=== PATIENT | male | born 1990 | race Caucasian/White ===

== ENCOUNTER 2020-05-17 13:31 | Outpatient (REF) | payer BC, SELFPAY | END 2020-05-17 13:32 | disposition home or self-care (01) | LOC: HO.LAB 13:31 | PROVIDERS: Visit Provider Internal Medicine | DX: Z20.822 Contact with and (suspected) exposure to COVID-19 (principal) | CPT/HCPCS: 36415; C9803; U0003; U0005 ==

== ENCOUNTER 2021-04-06 17:42 | Outpatient (REF) | payer BC, SELFPAY ==
[2021-04-06 19:32] LABS: Influenza A PCR NEGATIVE (Negative); Influenza B PCR NEGATIVE (Negative); Resp Syncy Virus RNA Qual PCR NEGATIVE (Negative); SARS COV2 PCR INHOUSE POSITIVE (Negative)
== END 2021-04-06 17:43 | disposition home or self-care (01) ==
LOC: HO.LAB 17:42
PROVIDERS: PCP Internal Medicine; Visit Provider Physician Assistant
DX: Z20.822 Contact with and (suspected) exposure to COVID-19 (principal)
CPT/HCPCS: 0241U

== ENCOUNTER 2021-09-13 09:23 | Inpatient (IN) | payer BC, SELFPAY ==
--- NOTE | ~2021-09-13 | CT_ITS ---
EXAMINATION: CT ABDOMEN AND PELVIS WITH CONTRAST CLINICAL INFORMATION: Lower GI bleed. COMPARISON: None TECHNIQUE: Multidetector volumetric images were obtained from the superior aspect of the liver through the pubic symphysis following administration 85 mL of Omnipaque 350 intravenous contrast. Sagittal and coronal reformatted images were obtained on the technologist's workstation. Oral contrast: Yes This CT examination was performed using dose optimization techniques as appropriate, variously including the following: *Automated exposure control *Adjustment of mA and/or kV according to patient size (this includes techniques or standardized protocols for targeted exams where dose is matched to indication/reason for exam; i.e. extremities or head) *Use of iterative reconstruction technique DLP: 507 mGy-cm FINDINGS: LUNG BASES: The visualized lung bases are unremarkable. LIVER, GALLBLADDER, AND BILIARY TREE: The liver is normal in size, shape, and attenuation. No focal hepatic lesion or biliary ductal dilatation is present. The gallbladder is unremarkable with no evidence of radiopaque gallstones, gallbladder wall thickening, or obvious pericholecystic inflammatory changes. PANCREAS: Unremarkable. SPLEEN: Unremarkable. ADRENAL GLANDS: Unremarkable. KIDNEYS AND URETERS: The kidneys are normal in size, shape, and attenuation. No hydronephrosis, hydroureter, or calculi seen. No perinephric stranding. BLADDER: Unremarkable. GASTROINTESTINAL TRACT: The stomach is unremarkable. Oral contrast utilized for the study. Normal caliber small bowel. No obstruction. No colonic wall thickening or acute inflammation. Mild colonic stool burden. Contrast extends throughout the small bowel and into the colon. ABDOMINAL WALL: No significant hernia is appreciated. LYMPH NODES: Normal. VASCULAR: Normal caliber aorta. Retroaortic left renal vein. PELVIC VISCERA: The prostate and seminal vesicles are unremarkable. OSSEOUS STRUCTURES: No acute or suspicious osseous abnormality. CT/CT abdomen pelvis w con IMPRESSION: No acute findings in the abdomen or pelvis. No inflammatory changes or bowel wall thickening. Fleischner guidelines were followed.
[2021-09-13 09:27] VITALS: BP 126/78; PULSE 66; RESP 16; TEMP 36.1; O2SAT 98; BMI 27.1
[2021-09-13 09:36] LABS: MANUAL DIFF FLAG NO
[2021-09-13 09:38] LABS: Basophils Absolute Auto 0.1 X10*3/uL (0.0-0.2); Basophils Percent Auto 0.9 % (0-2); Eosinophils Absolute Auto 0.1 X10*3/uL (0.0-0.4); Eosinophils Percent Auto 1.3 % (0-4); Hemoglobin 12.7 g/dl (14.0-18.0); Imm Gran Abs Auto 0.02 X10*3/uL (0.00-0.03); Imm Gran Pct Auto 0.4 % (0.0-0.4); Lymphocytes Absolute Auto 1.3 X10*3/uL (1.2-4.9); Lymphocytes Percent Auto 24.5 % (20-40); Mean Corpuscular HGB Conc 34.3 g/dl (31.0-36.0); Mean Corpuscular Hemoglobin 29.6 pg (27.0-33.0); Mean Corpuscular Volume 86.2 fL (80.0-98.0); Mean Platelet Volume 9.1 fL (9.4-12.4); Monocytes Absolute Auto 0.5 X10*3/uL (0.1-1.2); Monocytes Percent Auto 8.4 % (2-11); Neutrophils Absolute Auto 3.4 x10*3/uL (2.0-8.3); Neutrophils Percent Auto 64.5 % (45-73); Platelet Count 322 X10*3/uL (160-400); Red Blood Count 4.29 X10*6/uL (4.60-5.80); Red Cell Distribution Width 12.2 % (11.0-16.0); White Blood Count 5.3 X10*3/uL (4.8-10.8)
[2021-09-13 10:00] LABS: Alanine Aminotransferase 17 U/L (0-40); Albumin Level 4.4 g/dL (3.5-5.0); Alkaline Phosphatase 58 U/L (39-117); Anion Gap 11 (12-20); Aspartate Amino Transferase 18 U/L (5-37); Bilirubin Total 0.8 mg/dL (0.0-1.0); Blood Urea Nitrogen 10 mg/dL (9-16); Calcium 9.3 mg/dL (8.4-10.2); Carbon Dioxide 25 mmol/L (22-29); Chloride 106 mmol/L (96-108); Creatinine Clr Calc Pharmacy 142.8; Estimated Glomerular Filt Rate > 60; Glucose Random 100 mg/dL (60-115); Potassium 4.1 mmol/L (3.3-5.1); Sodium 138 mmol/L (135-145)
--- NOTE | 2021-09-13 10:33 | ED.GIBLEED ---
HPI - GI Bleed General Chief complaint: GI Bleed Stated complaint: GI Bleed Time Seen by Provider: 09/13/21 10:32 Source: patient Mode of arrival: ambulatory History of Present Illness HPI Narrative: 31-year-old male without significant past medical history comes in with onset of GI bleed since yesterday reports that it has been melena and large volumes with approximately 3 episodes. He has not suffered any incontinence, it is not associated with pain, but there have been large clots and patient notes that he does have hemorrhoids but ?this does not feel like?. He otherwise denies any dizziness, headache, shortness of breath, chest pain/palpitations and denies any abdominal discomfort at this time. Patient does report a cousin who is in his 30s and just recently recovered from colon cancer. He does report that his grandfather has also had a history of colon cancer. Patient denies any history NSAID use. Related Data Home Medications Medication Instructions Recorded Confirmed dextroamphetamine-amphetamine ER 1 cap PO DAILY 09/13/21 09/13/21 30 mg 24hr capsule,extend release (Adderall XR) Allergies Allergy/AdvReac Type Severity Reaction Status Date / Time No Known Allergies Allergy Verified 09/13/21 09:30 Review of Systems Review of Systems: Pertinent positives and negatives as stated in HPI 10 point review of systems is otherwise negative. [facility] Past Medical History Source: nursing notes reviewed Social History Social History Advance Directives: No Advance Directives Information Provided: Yes Physical Exam Vital Signs: Vital Signs: Last Vital Signs Temp 97.0 F 09/13/21 09:27 Pulse 66 09/13/21 09:27 Resp 16 09/13/21 09:27 BP 126/78 09/13/21 09:27 Pulse Ox 98 09/13/21 09:27 BMI result Body Mass Index 27.1 VITAL SIGNS: Reviewed. GENERAL: Well developed, well nourished, in no acute distress. HEAD: Normocephalic/atraumatic EYES: PERRLA, EOMI EARS: Ext canals without abnormality OROPHARYNX: no oral lesions noted, posterior pharynx clear LUNGS: Normal breath sounds. No adventitious sounds or accessory muscle use. SpO2<98> CARDIOVASCULAR: Regular rate and rhythm without noted murmurs ABDOMEN: Soft, non-tender, non-distended with bowel sounds. 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 EXTREMITIES: No cyanosis, clubbing or edema. SKIN: Inspection of the skin reveals no rashes NEUROLOGIC: Alert and oriented x 4. Strength and sensation to light touch were grossly intact x 4. Course Course Course Narrative: 31-year-old male with history and clinical presentation consistent with lower GI bleed do not suspect that this is internal hemorrhoids and on review of all investigations BUN remains within normal limits, however on comparison with prior lab results from 2019 there is a noted 3 g drop. Patient is not clinically symptomatic at this time, but given last episode was 3 hours ago and patient is still complaining symptoms feeling like his abdomen is rumbling suspect that he may have another episode. He was given Protonix, although less likely felt to be an upper GI bleed. Reevaluation(s) Reevaluation #1: I discussed the case with Dr. Gonzalez who recommends admission, CT abdomen pelvis with p.o. contrast. Time: 11:06 Reevaluation #2: I spoke with Radiology who is agreeable to proceed with IV contrast and is recommending it. Therefore, the order was amended and patient will undergo both p.o. and IV contrast abdomen pelvis. MDM - GI Bleed Lab Data Result diagrams: 09/13/21 09:33 09/13/21 09:33 Labs: Lab Results 09/13/21 09/13/21 09/13/21 Range/Units 09:33 09:33 11:37 WBC 5.3 (4.8-10.8) X10*3/uL RBC 4.29 L (4.60-5.80) X10*6/uL Hgb 12.7 L (14.0-18.0) g/dl Hct 37.0 L (42.0-52.0) % MCV 86.2 (80.0-98.0) fL MCH 29.6 (27.0-33.0) pg MCHC 34.3 (31.0-36.0) g/dl RDW 12.2 (11.0-16.0) % Plt Count 322 (160-400) X10*3/uL MPV 9.1 L (9.4-12.4) fL Immature Gran % (Auto) 0.4 (0.0-0.4) % Neut % (Auto) 64.5 (45-73) % Lymph % (Auto) 24.5 (20-40) % [place] % (Auto) 8.4 (2-11) % Eos % (Auto) 1.3 (0-4) % Baso % (Auto) 0.9 (0-2) % Lymph # (Auto) 1.3 (1.2-4.9) X10*3/uL [place] # (Auto) 0.5 (0.1-1.2) X10*3/uL Eos # (Auto) 0.1 (0.0-0.4) X10*3/uL Baso # (Auto) 0.1 (0.0-0.2) X10*3/uL Abs Immat Gran (auto) 0.02 (0.00-0.03) X10*3/uL Absolute Neuts (auto) 3.4 (2.0-8.3) x10*3/uL Absolute Nucleated RBC 0.000 (0.0-0.012) X10*3/uL Nucleated RBC % (auto) 0.0 (0.0-0.2) /100WBC Sodium 138 (135-145) mmol/L Potassium 4.1 (3.3-5.1) mmol/L Chloride 106 (96-108) mmol/L Carbon Dioxide 25 (22-29) mmol/L Anion Gap 11 L (12-20) BUN 10 (9-16) mg/dL Creatinine 0.83 (0.5-1.4) mg/dL Estim Creat Clear Calc 142.8 Estimated GFR > 60 Random Glucose 100 (60-115) mg/dL Calcium 9.3 (8.4-10.2) mg/dL Total Bilirubin 0.8 (0.0-1.0) mg/dL AST 18 (5-37) U/L ALT 17 (0-40) U/L Alkaline Phosphatase 58 (39-117) U/L Total Protein 7.0 (6.5-8.0) g/dL Albumin 4.4 (3.5-5.0) g/dL Stool Occult Blood (NEGATIVE) Blood Type O Negative Antibody Screen NEGATIVE 09/13/21 Range/Units 11:37 WBC (4.8-10.8) X10*3/uL RBC (4.60-5.80) X10*6/uL Hgb (14.0-18.0) g/dl Hct (42.0-52.0) % MCV (80.0-98.0) fL MCH (27.0-33.0) pg MCHC (31.0-36.0) g/dl RDW (11.0-16.0) % Plt Count (160-400) X10*3/uL MPV (9.4-12.4) fL Immature Gran % (Auto) (0.0-0.4) % Neut % (Auto) (45-73) % Lymph % (Auto) (20-40) % [place] % (Auto) (2-11) % Eos % (Auto) (0-4) % Baso % (Auto) (0-2) % Lymph # (Auto) (1.2-4.9) X10*3/uL [place] # (Auto) (0.1-1.2) X10*3/uL Eos # (Auto) (0.0-0.4) X10*3/uL Baso # (Auto) (0.0-0.2) X10*3/uL Abs Immat Gran (auto) (0.00-0.03) X10*3/uL Absolute Neuts (auto) (2.0-8.3) x10*3/uL Absolute Nucleated RBC (0.0-0.012) X10*3/uL Nucleated RBC % (auto) (0.0-0.2) /100WBC Sodium (135-145) mmol/L Potassium (3.3-5.1) mmol/L Chloride (96-108) mmol/L Carbon Dioxide (22-29) mmol/L Anion Gap (12-20) BUN (9-16) mg/dL Creatinine (0.5-1.4) mg/dL Estim Creat Clear Calc Estimated GFR Random Glucose (60-115) mg/dL Calcium (8.4-10.2) mg/dL Total Bilirubin (0.0-1.0) mg/dL AST (5-37) U/L ALT (0-40) U/L Alkaline Phosphatase (39-117) U/L Total Protein (6.5-8.0) g/dL Albumin (3.5-5.0) g/dL Stool Occult Blood POSITIVE (NEGATIVE) Blood Type Antibody Screen Discharge Plan Discharge Clinical Impression: GI bleed Patient Disposition: Admitted As Inpatient
[2021-09-13] MEDS: 0.9 % Sodium Chloride 1,000 ML 999 ML IV (10:44)
[2021-09-13] MEDS: Pantoprazole Sodium 40 MG/10 ML VIAL IVPUSH ×2 (10:47→19:35)
--- NOTE | 2021-09-13 11:46 | PC.NURSE ---
Pt states that he just used the restroom and there was no bloody BM.
[2021-09-13 11:52] LABS: OBS Int Ctl Valid YES; OBS1 POSITIVE (NEGATIVE)
--- NOTE | 2021-09-13 12:13 | PHA.MEDREC ---
Pharmacy Consult ? Medication Reconciliation Pharmacy has completed the medication reconciliation. Patient reports only taking Adderall at home which matches claim history. Ammy Kraft, AleksD
[2021-09-13] MEDS: iohexoL 300 MG/ML 100 ML INFUS..BTL 85 ML IV (14:08)
[2021-09-13] MEDS: Barium Sulfate Oral (Mocha) 450 ML ORAL.SUSP 900 ML PO (14:18)
[2021-09-13 15:02] VITALS: BP 112/74; PULSE 57; RESP 16; TEMP 36.6; O2SAT 99
--- NOTE | 2021-09-13 15:12 | PM.IMHP ---
History of Present Illness Date of Service: 09/13/21 Chief Complaint: Rectal bleeding 31-year-old male with no past medical history presenting with acute on set of rectal bleeding. He reports having muliple episdoes or bright red red blood per rectum since yesterday at times with clot, and in fact has had several episodes here in ED. He denies associated abdominal pain, no mucus, no feve or chills, no lightheadedness. Initial hemoglobin in 12.7 and hemodynamically stable. He is concern due to a cousin in his 30s having a colon cancer recently Review of Systems Review of Systems: rectal bleed no abdominal pain no n/v Yes all other systems are reviewed and are negative PMFSH Pertinent family history: Family history of early colon cancer Social History Household Members: Spouse Housing: House Unable to assess alcohol history related to: Unknown Patient Tobacco Use Status: Never used Tobacco Use of substances other than those prescribed or required for medical reasons: No Currently Displaying Signs/Symptoms of Drug Intoxication Withdrawal: No Advance Directives: No Advance Directives Information Provided: Yes Do you have thoughts of harming others: None Do you have a plan to hurt others: No Plan Recently lost weight without trying: No Eating poorly because of decreased appetite: No Nutrition Risks: No Nutritional Risk Poor oral hygiene: No Meds Allergies Allergy/AdvReac Type Severity Reaction Status Date / Time No Known Allergies Allergy Verified 09/13/21 09:30 Home Medications Medication Instructions Recorded Confirmed Last Taken Type dextroamphetamine-amphetamine ER 1 cap PO DAILY 09/13/21 09/13/21 09/12/21 History 30 mg 24hr capsule,extend release (Adderall XR) Physical Exam Vital Signs and Narrative: Vital Signs: Last Vital Signs Temp 97.9 F 09/13/21 15:02 Pulse 57 09/13/21 15:02 Resp 16 09/13/21 15:02 BP 112/74 09/13/21 15:02 Pulse Ox 99 09/13/21 15:02 BMI result Body Mass Index 27.1 Const: Other: Constitutional: Alert, in no distress Mental Status: Oriented to person, place and time. Eyes: Pupils are equal, round and reactive to light. Ear, Nose and Throat: Oropharynx clear, mucous membranes moist. Ears and nose without eformities. Respiratory: Clear to auscultation. No wheezing, rales or rhonchi. Cardiovascular: S1 S2 regular. No murmurs, rubs or gallops. Gastrointestinal: Abdomen soft, non-tender, non-distended. Normal bowel sounds.? rectal exam deffered Neurologic: Cranial nerves II-XII grossly intact. No focal neurological deficits. Moves all extremities spontaneously.? Skin: No rashes or lesions.? Musculoskeletal: No cyanosis or clubbing. Psychiatric: Normal mood and affect? Results Labs CBC and Chem 7: 09/14/21 04:58 09/14/21 04:58 Labs: Laboratory Results - last 24 hr 09/13/21 09/13/21 09/13/21 09:33 09:33 11:37 MCV 86.2 MCH 29.6 MCHC 34.3 RDW 12.2 Plt Count 322 MPV 9.1 L Immature Gran % (Auto) 0.4 Neut % (Auto) 64.5 Lymph % (Auto) 24.5 [place] % (Auto) 8.4 Eos % (Auto) 1.3 Baso % (Auto) 0.9 Lymph # (Auto) 1.3 [place] # (Auto) 0.5 Eos # (Auto) 0.1 Baso # (Auto) 0.1 Abs Immat Gran (auto) 0.02 Absolute Neuts (auto) 3.4 Absolute Nucleated RBC 0.000 Nucleated RBC % (auto) 0.0 Anion Gap 11 L Estim Creat Clear Calc 142.8 Estimated GFR > 60 Random Glucose 100 Calcium 9.3 Total Bilirubin 0.8 AST 18 ALT 17 Alkaline Phosphatase 58 Total Protein 7.0 Albumin 4.4 Stool Occult Blood Blood Type O Negative Antibody Screen NEGATIVE 09/13/21 11:37 MCV MCH MCHC RDW Plt Count MPV Immature Gran % (Auto) Neut % (Auto) Lymph % (Auto) [place] % (Auto) Eos % (Auto) Baso % (Auto) Lymph # (Auto) [place] # (Auto) Eos # (Auto) Baso # (Auto) Abs Immat Gran (auto) Absolute Neuts (auto) Absolute Nucleated RBC Nucleated RBC % (auto) Anion Gap Estim Creat Clear Calc Estimated GFR Random Glucose Calcium Total Bilirubin AST ALT Alkaline Phosphatase Total Protein Albumin Stool Occult Blood POSITIVE Blood Type Antibody Screen Assessment and Plan (1) GI bleed: Status: Acute (2) Acute blood loss anemia: Status: Acute Plan 31 year old male with painless rectal bleeding and acute blood loss anemia. DDx: Gi maligancy, diverticular bleed Plan: Serial H/H, GI consult for possible endoscopy, Bleeding scan if actively bleeding. No ASA, or anticoagulant. Low risk for DVT, hosptialization to span at lest 2 midngights for active gib work up and close [place] of H/H Quality Stroke Does the patient have a stroke diagnosis?: No VTE Prior VTE?: No VTE Risk Level:: Medical - low VTE Device Contraindication: Treatment Not Indicated VTE Drug Contraindication: Treatment Not Indicated
[2021-09-13 18:04] LABS: COVID-19 Test Negative (Negative); IDNOW Serial# 55D5AD1C
[2021-09-13] MEDS: 0.9 % Sodium Chloride Flush 3 ML SYRINGE IVFLUSH (19:20)
--- NOTE | 2021-09-13 19:30 | PM.EVENT ---
Event Note Date of Service: 09/13/21 Event Note: GI Consult-Full note dictated-History via patient and EMR. Imp: Healthy 31 yo presenting with primarily melena and anemia. He does have some GERD/heartburn but otherwise no GI symptoms. Denies ASA, NSAIDs, smoking, nor significant alcohol intake. His exam is unremarkable. Diff dx: PUD, esophagitis Rec: Upper endoscopy with MAC on 09/14. Full consent obtained for the EGD, including risks of bleeding and perforation. F/U Hgb and PT/INR. IV PPI. D/W patient and . They are comfortable with this plan. Thanks
--- NOTE | 2021-09-13 19:37 | MHC.SHP ---
Pre-Procedural Eval Section A Date of Service: 09/14/21 The patient is an INPATIENT: Yes The History & Physical has been completed within 30 days and I have reviewed it.: Yes Section B Chief Complaint: GI bleed Allergies: Allergies Allergy/AdvReac Type Severity Reaction Status Date / Time No Known Allergies Allergy Verified 09/13/21 09:30 Plan I have reviewed the history and physical and performed a pertinent physical examination on my patient. No changes have occurred unless specified.
[2021-09-13 19:54] LABS: MANUAL DIFF FLAG NO
[2021-09-13 19:56] LABS: Basophils Percent Auto 0.7 % (0-2); Eosinophils Absolute Auto 0.2 X10*3/uL (0.0-0.4); Eosinophils Percent Auto 2.9 % (0-4); Hematocrit 33.1 % (42.0-52.0); Hemoglobin 11.5 g/dl (14.0-18.0); Imm Gran Abs Auto 0.02 X10*3/uL (0.00-0.03); Imm Gran Pct Auto 0.4 % (0.0-0.4); Lymphocytes Absolute Auto 2.3 X10*3/uL (1.2-4.9); Lymphocytes Percent Auto 41.4 % (20-40); Mean Corpuscular HGB Conc 34.7 g/dl (31.0-36.0); Mean Corpuscular Hemoglobin 30.3 pg (27.0-33.0); Mean Corpuscular Volume 87.1 fL (80.0-98.0); Mean Platelet Volume 9.3 fL (9.4-12.4); Monocytes Absolute Auto 0.6 X10*3/uL (0.1-1.2); Neutrophils Absolute Auto 2.4 x10*3/uL (2.0-8.3); Neutrophils Percent Auto 43.6 % (45-73); Platelet Count 278 X10*3/uL (160-400); Red Cell Distribution Width 12.3 % (11.0-16.0); White Blood Count 5.4 X10*3/uL (4.8-10.8)
[2021-09-13 20:02] LABS: INTERNATIONAL NORM RATIO 1.2 (0.9-1.1); Prothrombin Time 13.1 SEC (9.9-13.0)
[2021-09-13 21:28] VITALS: BP 121/73; PULSE 53; RESP 18; TEMP 36.5; O2SAT 99
--- NOTE | 2021-09-13 23:03 | CONS_ITS ---
DATE OF SERVICE: REASON FOR CONSULTATION: Melena and anemia. HISTORY OF PRESENT ILLNESS: The patient is a 31-year-old healthy male, who was in his usual state of health up until last evening when he describes having a dark bowel movement with some red blood noted in the water. He did not have any other associated symptoms with that such as nausea, abdominal pain, nor lightheadedness. He never had this problem before. He denies any preceding history of ulcer disease in the past. He does describe intermittent heartburn for which he takes omeprazole on a p.r.n. basis. Over the course of the evening and into this morning, he had a couple more black stools, and again there was some red blood noted to be in the water. He again did not have any associated symptoms such as nausea, vomiting, abdominal pain, nor lightheadedness. He denies any history of any significant aspirin use, NSAID use, tobacco, nor alcohol. He does describe having some alcohol twice a week, but maybe just a couple of beers or drinks. Since being in the ER, he has been hemodynamically stable. He has had some small black stools, but nothing significant. He denies any family history of ulcer disease. He describes a grandfather with a history of colon cancer in his 90s and a 1st cousin with colon cancer in his 30s. MEDICATIONS: At home Adderall. PAST MEDICAL HISTORY: ADD. He denies history of heart disease, diabetes, stroke, lung disease or kidney disease. He does have intermittent reflux. He has had surgery bilaterally for gynecomastia. He denies any other surgeries. 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 He does not smoke and does not use any significant amounts of alcohol. He is . FAMILY HISTORY: Noted as above. REVIEW OF SYSTEMS: CONSTITUTIONAL: In general, he had been feeling well with good appetite and good energy. SKIN: No rash. No pruritus. CARDIAC: No chest pain or orthopnea. PULMONARY: No coughing or hemoptysis. GI: As above. URINARY: No dysuria or hematuria. PHYSICAL EXAMINATION: GENERAL: The patient is a pleasant alert comfortable appearing male, in no distress. SKIN: Warm and dry. VITAL SIGNS: Stable. Anicteric sclerae. NECK: Supple. No lymphadenopathy. CHEST: Clear. CARDIAC: Soft, nondistended, nontender without mass. EXTREMITIES: Without edema. LABORATORY DATA: Hemoglobin 12.7 compared to 15.3 in August of 2018. MCV 86, platelets 222,000, white blood cell count 5.3, normal electrolytes. BUN 10, creatinine 0.8. Normal liver profile. Albumin 4.4. Stool was positive for occult blood. He did have a CT scan of the abdomen and pelvis this afternoon that is described as normal and specifically without any abnormalities involving the GI tract. IMPRESSION: Given the patient's presentation with primarily melena and anemia, as well as occasional heartburn, this seems consistent with an upper GI bleed, possibly from ulcer disease or erosive esophagitis. At this point, he appears quite stable. He will have followup laboratories for CBC this evening and be started on IV PPI. He will undergo upper endoscopy tomorrow with monitored anesthesia care. Full consent was obtained from him for this, including risks of bleeding and perforation. If the upper endoscopy is nonrevealing he would then need a colonoscopy for further evaluation. This has all been discussed in detail with the patient and his . They are comfortable with the plan. Thank you for the consultation. MD BEN Silverman/ZANE / [phone] MTDTiny
[2021-09-13 23:34] VITALS: BP 120/70; PULSE 53; RESP 18; TEMP 37; O2SAT 98
[2021-09-14] MEDS: 0.9 % Sodium Chloride Flush 3 ML SYRINGE IVFLUSH ×2 (00:49→08:38)
[2021-09-14 03:51] VITALS: BP 115/69; PULSE 77; RESP 18; TEMP 36.4; O2SAT 99
[2021-09-14 06:11] LABS: Hematocrit 34.3 % (42.0-52.0); Hemoglobin 11.6 g/dl (14.0-18.0); Mean Corpuscular HGB Conc 33.8 g/dl (31.0-36.0); Mean Corpuscular Hemoglobin 29.9 pg (27.0-33.0); Mean Corpuscular Volume 88.4 fL (80.0-98.0); Mean Platelet Volume 10.2 fL (9.4-12.4); Platelet Count 278 X10*3/uL (160-400); Red Blood Count 3.88 X10*6/uL (4.60-5.80); Red Cell Distribution Width 12.4 % (11.0-16.0); White Blood Count 4.6 X10*3/uL (4.8-10.8)
[2021-09-14] MEDS: Pantoprazole Sodium 40 MG/10 ML VIAL IVPUSH (06:36)
[2021-09-14 06:38] LABS: Anion Gap 11 (12-20); Blood Urea Nitrogen 10 mg/dL (9-16); Calcium 8.8 mg/dL (8.4-10.2); Carbon Dioxide 26 mmol/L (22-29); Chloride 107 mmol/L (96-108); Creatinine Clr Calc Pharmacy 151.9; Estimated Glomerular Filt Rate > 60; Glucose Fasting 87 mg/dL (60-99); Sodium 140 mmol/L (135-145)
[2021-09-14 07:28] VITALS: BP 126/68; PULSE 51; RESP 18; TEMP 36.6; O2SAT 95
--- NOTE | 2021-09-14 09:25 | HO.PM.IMPN ---
Subjective Subjective Date of Service: 09/14/21 Interval History: f/u on gib, anemia no bleeding since yesterday Physical Exam Vital Signs: Vital Signs: Last Vital Signs Temp 97.9 F 09/14/21 07:28 Pulse 51 09/14/21 07:28 Resp 18 09/14/21 07:28 BP 126/68 09/14/21 07:28 Pulse Ox 95 09/14/21 07:28 BMI result Body Mass Index 27.1 Objective Data Active Medications Pantoprazole Sodium (Pantoprazole Sodium 40 Mg/10 Ml Vial) 40 mg IVPUSH BID@0630,1630 [facility] Last Admin: 09/14/21 06:36 Dose: 40 mg Documented by: LJ Sodium Chloride (0.9 % Sodium Chloride Flush 3 Ml Syringe) 3 ml IVFLUSH QSHIFT [facility] Last Admin: 09/14/21 08:38 Dose: 3 ml Documented by: MALAIKA Labs CBC & Chem 7: 09/14/21 04:58 09/14/21 04:58 Labs: Laboratory Results - last 24 hr 09/13/21 09/13/21 09/13/21 09:33 09:33 11:37 MCV 86.2 MCH 29.6 MCHC 34.3 RDW 12.2 Plt Count 322 MPV 9.1 L Immature Gran % (Auto) 0.4 Neut % (Auto) 64.5 Lymph % (Auto) 24.5 [place] % (Auto) 8.4 Eos % (Auto) 1.3 Baso % (Auto) 0.9 Lymph # (Auto) 1.3 [place] # (Auto) 0.5 Eos # (Auto) 0.1 Baso # (Auto) 0.1 Abs Immat Gran (auto) 0.02 Absolute Neuts (auto) 3.4 Absolute Nucleated RBC 0.000 Nucleated RBC % (auto) 0.0 PT INR Anion Gap 11 L Estim Creat Clear Calc 142.8 Estimated GFR > 60 Random Glucose 100 Fasting Glucose Calcium 9.3 Total Bilirubin 0.8 AST 18 ALT 17 Alkaline Phosphatase 58 Total Protein 7.0 Albumin 4.4 Stool Occult Blood COVID-19 ([facility]) COVID-19 Clin Com Blood Type O Negative Antibody Screen NEGATIVE 09/13/21 09/13/21 09/13/21 11:37 11:37 19:52 MCV 87.1 MCH 30.3 MCHC 34.7 RDW 12.3 Plt Count 278 MPV 9.3 L Immature Gran % (Auto) 0.4 Neut % (Auto) 43.6 L Lymph % (Auto) 41.4 H [place] % (Auto) 11.0 Eos % (Auto) 2.9 Baso % (Auto) 0.7 Lymph # (Auto) 2.3 [place] # (Auto) 0.6 Eos # (Auto) 0.2 Baso # (Auto) 0.0 Abs Immat Gran (auto) 0.02 Absolute Neuts (auto) 2.4 Absolute Nucleated RBC 0.000 Nucleated RBC % (auto) 0.0 PT INR Anion Gap Estim Creat Clear Calc Estimated GFR Random Glucose Fasting Glucose Calcium Total Bilirubin AST ALT Alkaline Phosphatase Total Protein Albumin Stool Occult Blood POSITIVE COVID-19 ([facility]) Negative COVID-19 [employer] Com See Note Blood Type Antibody Screen 09/13/21 09/14/21 09/14/21 19:52 04:58 04:58 MCV 88.4 MCH 29.9 MCHC 33.8 RDW 12.4 Plt Count 278 MPV 10.2 Immature Gran % (Auto) Neut % (Auto) Lymph % (Auto) [place] % (Auto) Eos % (Auto) Baso % (Auto) Lymph # (Auto) [place] # (Auto) Eos # (Auto) Baso # (Auto) Abs Immat Gran (auto) Absolute Neuts (auto) Absolute Nucleated RBC 0.000 Nucleated RBC % (auto) 0.0 PT 13.1 H INR 1.2 H Anion Gap 11 L Estim Creat Clear Calc 151.9 Estimated GFR > 60 Random Glucose Fasting Glucose 87 Calcium 8.8 Total Bilirubin AST ALT Alkaline Phosphatase Total Protein Albumin Stool Occult Blood COVID-19 ([facility]) COVID-19 [place] [employer] Com Blood Type Antibody Screen Quality Stroke Does the patient have a stroke diagnosis?: No VTE Prior VTE?: No VTE Risk Level:: Medical - low VTE Device Contraindication: Treatment Not Indicated VTE Drug Contraindication: Treatment Not Indicated
--- NOTE | 2021-09-14 09:57 | P.CONAN_ITS ---
HPI - Anesthesia Eval Consult details Narrative: Melena PMFSH Active Problems Active Problems: All Active Problems (Updated 09/14/21 @ 09:12 by Alex Kwok MD) Acute blood loss anemia (Acute) GI bleed (Acute) Family History Family history of problems with anesthesia: No Surgical History History of Problems with Anesthesia: No Social History Social History Household Members: Spouse Housing: House Unable to assess alcohol history related to: Unknown Patient Tobacco Use Status: Never used Tobacco Use of substances other than those prescribed or required for medical reasons: No Currently Displaying Signs/Symptoms of Drug Intoxication Withdrawal: No Advance Directives: No Advance Directives Information Provided: Yes Do you have thoughts of harming others: None Do you have a plan to hurt others: No Plan Recently lost weight without trying: No Eating poorly because of decreased appetite: No Nutrition Risks: No Nutritional Risk Poor oral hygiene: No Meds Allergies Allergy/AdvReac Type Severity Reaction Status Date / Time No Known Allergies Allergy Verified 09/13/21 09:30 Active Medications: Current Medications Pantoprazole Sodium (Pantoprazole Sodium 40 Mg/10 Ml Vial) 40 mg IVPUSH BID@0630,1630 COUNT INCLUDES THE [facility] Last Admin: 09/14/21 06:36 Dose: 40 mg Documented by: Sodium Chloride (0.9 % Sodium Chloride Flush 3 Ml Syringe) 3 ml IVFLUSH QSHIFT COUNT INCLUDES THE [facility] Last Admin: 09/14/21 08:38 Dose: 3 ml Documented by: Home Medications Medication Instructions Recorded Confirmed Last Taken Type dextroamphetamine-amphetamine ER 1 cap PO DAILY 09/13/21 09/13/21 09/12/21 History 30 mg 24hr capsule,extend release (Adderall XR) Exam Exam Date and Time: September 14, 2021 0957 Height,Weight and Vital Signs: Height 6 ft Weight 90.718 kg Last Vital Signs Temp 97.9 F 09/14/21 07:28 Pulse 51 09/14/21 07:28 Resp 18 09/14/21 07:28 BP 126/68 09/14/21 07:28 Pulse Ox 95 09/14/21 07:28 Pertinent Lab Results Pertinent Lab Results: Laboratory Tests 09/13/21 09/13/21 09/13/21 09:33 09:33 11:37 WBC 5.3 RBC 4.29 L Hgb 12.7 L Hct 37.0 L MCV 86.2 MCH 29.6 MCHC 34.3 RDW 12.2 Plt Count 322 MPV 9.1 L Immature Gran % (Auto) 0.4 Neut % (Auto) 64.5 Lymph % (Auto) 24.5 [place] % (Auto) 8.4 Eos % (Auto) 1.3 Baso % (Auto) 0.9 Lymph # (Auto) 1.3 [place] # (Auto) 0.5 Eos # (Auto) 0.1 Baso # (Auto) 0.1 Abs Immat Gran (auto) 0.02 Absolute Neuts (auto) 3.4 Absolute Nucleated RBC 0.000 Nucleated RBC % (auto) 0.0 PT INR Sodium 138 Potassium 4.1 Chloride 106 Carbon Dioxide 25 Anion Gap 11 L BUN 10 Creatinine 0.83 Estim Creat Clear Calc 142.8 Estimated GFR > 60 Random Glucose 100 Fasting Glucose Calcium 9.3 Total Bilirubin 0.8 AST 18 ALT 17 Alkaline Phosphatase 58 Total Protein 7.0 Albumin 4.4 Stool Occult Blood COVID-19 ([facility]) [facility] Com Blood Type O Negative Antibody Screen NEGATIVE 09/13/21 09/13/21 09/13/21 11:37 11:37 19:52 WBC 5.4 RBC 3.80 L Hgb 11.5 L Hct 33.1 L MCV 87.1 MCH 30.3 MCHC 34.7 RDW 12.3 Plt Count 278 MPV 9.3 L Immature Gran % (Auto) 0.4 Neut % (Auto) 43.6 L Lymph % (Auto) 41.4 H [place] % (Auto) 11.0 Eos % (Auto) 2.9 Baso % (Auto) 0.7 Lymph # (Auto) 2.3 [place] # (Auto) 0.6 Eos # (Auto) 0.2 Baso # (Auto) 0.0 Abs Immat Gran (auto) 0.02 Absolute Neuts (auto) 2.4 Absolute Nucleated RBC 0.000 Nucleated RBC % (auto) 0.0 PT INR Sodium Potassium Chloride Carbon Dioxide Anion Gap BUN Creatinine Estim Creat Clear Calc Estimated GFR Random Glucose Fasting Glucose Calcium Total Bilirubin AST ALT Alkaline Phosphatase Total Protein Albumin Stool Occult Blood POSITIVE COVID-19 ([facility]) Negative [facility] Clin Com See Note Blood Type Antibody Screen 0609/14/21 09/14/21 19:52 04:58 04:58 WBC 4.6 L RBC 3.88 L Hgb 11.6 L Hct 34.3 L MCV 88.4 MCH 29.9 MCHC 33.8 RDW 12.4 Plt Count 278 MPV 10.2 Immature Gran % (Auto) Neut % (Auto) Lymph % (Auto) [place] % (Auto) Eos % (Auto) Baso % (Auto) Lymph # (Auto) [place] # (Auto) Eos # (Auto) Baso # (Auto) Abs Immat Gran (auto) Absolute Neuts (auto) Absolute Nucleated RBC 0.000 Nucleated RBC % (auto) 0.0 PT 13.1 H INR 1.2 H Sodium 140 Potassium 4.0 Chloride 107 Carbon Dioxide 26 Anion Gap 11 L BUN 10 Creatinine 0.78 Estim Creat Clear Calc 151.9 Estimated GFR > 60 Random Glucose Fasting Glucose 87 Calcium 8.8 Total Bilirubin AST ALT Alkaline Phosphatase Total Protein Albumin Stool Occult Blood COVID-19 ([facility]) COVID-19 Clin Com Blood Type Antibody Screen Airway Mallampati Class: II TM Dist: >3cm Neck ROM: Full Heart: RRR Lungs: CTA Assessment and Plan Assessment Anesthesia Assessment: Anesthesia Plan Discussed and Chart Reviewed Final Anesthetic Review Family History of Problems with Anesthesia: No History of Problems with Anesthesia: No NPO: Yes ASA Class: II Final Preanesthetic Review: No Changes in Pt Med Stat, Meds/Allgs Chart Reviewed, Consent Obtained/Reviewed and Anes Risks/Benef Reviewed Patient Risk: Low Procedure Risk: Low Anesthetic Plan Anesthetic Plan: MAC: Disposition: Standard PACU
--- NOTE | 2021-09-14 10:30 | MHC.CM.PN ---
CM ATTEMPTED TO MEET WITH PT HOWEVER PT OFF UNIT FOR UPPER ENDOSCOPY, CM WILL REVISIT.
[2021-09-14 10:45] VITALS: BP 94/40; PULSE 64; RESP 16; TEMP 36.4; O2SAT 99
--- NOTE | 2021-09-14 10:51 | PM.EVENT ---
Event Note Date of Service: 09/14/21 Event Note: GI-EGD with biopsy-Full note dictated Findings: 1. Minimal hiatal hernia 2. Slight irregularity at EG Junction--biopsies taken to R/O Vance's 3. No sign of bleeding, coffee grounds, ulcer, inflammation, AVM, nor Dieulafoy lesion. Rec: He will need a colonoscopy---? inpatient vs outpatient. I will D/W him. Start po PPI and clear liquids in the meantime. D/W as well. Thanks
--- NOTE | 2021-09-14 10:55 | PM.OP ---
Brief Operative Note Date of Service: 09/14/21 Pre-op diagnosis: Melena, anemia Post-op diagnosis: other (Small hiatal hernia, R/O Vance's) Procedure: EGD with biopsies Surgeon: Cameron Vargas Anesthesia: MAC Was an Tactical Debriefer Officer used for this Procedure?: No Estimated blood loss (mL): 2.0 Pathology: other (A. EG Junction at 40cm) Condition: stable Disposition: PACU
[2021-09-14 11:00] VITALS: BP 111/58; PULSE 52; RESP 16; TEMP 36.6; O2SAT 100
--- NOTE | 2021-09-14 11:50 | P.DS_ITS ---
DS: Providers Provider Date of Service: 09/14/21 Date of admission: 09/13/21 15:22 Primary care physician: Nic Lea MD Consults: 09/13/21 15:25 Consult to Gastroenterology Routine Consulting Provider: Cameron Vargas Reason for consultation: rectal bleeding Has provider been notified: No DS: Diagnosis Discharge Diagnosis (1) GI bleed: Status: Acute (2) Acute blood loss anemia: Status: Acute DS: Summary Hospital Course Hospital Course: Chief Complaint: Rectal bleeding 31-year-old male with no past medical history presenting with acute on set of rectal bleeding.? He reports having muliple episdoes or bright red red blood per rectum since yesterday at times with clot, and in fact has had several episodes here in ED. He denies associated abdominal pain, no mucus, no feve or chills, no lightheadedness. Initial hemoglobin in 12.7 and hemodynamically stable. He is concern due to? a cousin in his 30s having a colon cancer recently. Hospial couse: Patient was admitted overnight and did not have any further bleeding. Hemoglobin dropped from 12 to 11. He underwent EGD by Dr. Vargas on 09/14/21 and found to have mild gastritis and therefore a colonoscopy was proposed to locate ultimate source of bleed but patient prefers to have this done on outpatient basis. Dr. Vargas will therefore arrange this on outpatient basis, he understands than bleeding can recur once return home. He is advised to return to ED if bleeding recur. Time Spent with Patient Time attestation: Total time spent providing and/or coordinating discharge services: Discharge coordination time: Greater than 30 minutes Quality: Safe Use of Opioids Does Pt have an Active Cancer Diagnosis on the Problem List?: No Quality: Stroke Does the patient have a stroke diagnosis?: No Physical Exam Vital Signs: Vital Signs: Last Vital Signs Temp 97.9 F 09/14/21 11:00 Pulse 52 09/14/21 11:00 Resp 16 09/14/21 11:00 BP 111/58 L 09/14/21 11:00 Pulse Ox 100 09/14/21 11:00 BMI result Body Mass Index 27.1 Const: Other: General: AO X 3, no acute distress Resp: CTA bilateral CVS: S1,S2,RRR GI: +BS, NT, no distention Skin: No rash Neuro: motor grossly intact Psych: appropriate affect DS: Data Data Completed and Pending Pending studies at discharge: Pending at discharge 09/14/21 10:32 Surgical [PTH] Routine Labs on day of discharge: Laboratory Results - last 24 hr 09/13/21 09/13/21 09/13/21 11:37 11:37 11:37 WBC RBC Hgb Hct MCV MCH MCHC RDW Plt Count MPV Immature Gran % (Auto) Neut % (Auto) Lymph % (Auto) [place] % (Auto) Eos % (Auto) Baso % (Auto) Lymph # (Auto) [place] # (Auto) Eos # (Auto) Baso # (Auto) Abs Immat Gran (auto) Absolute Neuts (auto) Absolute Nucleated RBC Nucleated RBC % (auto) PT INR Sodium Potassium Chloride Carbon Dioxide Anion Gap BUN Creatinine Estim Creat Clear Calc Estimated GFR Fasting Glucose Calcium Stool Occult Blood POSITIVE COVID-19 ([facility]) Negative COVID-19 Clin Com See Note Blood Type O Negative Antibody Screen NEGATIVE 09/13/21 09/13/21 09/14/21 19:52 19:52 04:58 WBC 5.4 4.6 L RBC 3.80 L 3.88 L Hgb 11.5 L 11.6 L Hct 33.1 L 34.3 L MCV 87.1 88.4 MCH 30.3 29.9 MCHC 34.7 33.8 RDW 12.3 12.4 Plt Count 278 278 MPV 9.3 L 10.2 Immature Gran % (Auto) 0.4 Neut % (Auto) 43.6 L Lymph % (Auto) 41.4 H [place] % (Auto) 11.0 Eos % (Auto) 2.9 Baso % (Auto) 0.7 Lymph # (Auto) 2.3 [place] # (Auto) 0.6 Eos # (Auto) 0.2 Baso # (Auto) 0.0 Abs Immat Gran (auto) 0.02 Absolute Neuts (auto) 2.4 Absolute Nucleated RBC 0.000 0.000 Nucleated RBC % (auto) 0.0 0.0 PT 13.1 H INR 1.2 H Sodium Potassium Chloride Carbon Dioxide Anion Gap BUN Creatinine Estim Creat Clear Calc Estimated GFR Fasting Glucose Calcium Stool Occult Blood COVID-19 ([facility]) COVID-19 Clin Com Blood Type Antibody Screen 09/14/21 04:58 WBC RBC Hgb Hct MCV MCH MCHC RDW Plt Count MPV Immature Gran % (Auto) Neut % (Auto) Lymph % (Auto) [place] % (Auto) Eos % (Auto) Baso % (Auto) Lymph # (Auto) [place] # (Auto) Eos # (Auto) Baso # (Auto) Abs Immat Gran (auto) Absolute Neuts (auto) Absolute Nucleated RBC Nucleated RBC % (auto) PT INR Sodium 140 Potassium 4.0 Chloride 107 Carbon Dioxide 26 Anion Gap 11 L BUN 10 Creatinine 0.78 Estim Creat Clear Calc 151.9 Estimated GFR > 60 Fasting Glucose 87 Calcium 8.8 Stool Occult Blood COVID-19 ([facility]) COVID-19 Clin Com Blood Type Antibody Screen Discharge Plan Discharge Anticipated Discharge Date/Time: 09/14/21 11:44 Patient Disposition: Home, Self-Care Discharge Diagnosis: Lower GI bleeding, acute blood loss anemia Referrals: Nic Lea MD [Primary Care Provider] - 1 Week Discharge Medications: Continued dextroamphetamine-amphetamine [Adderall XR] 30 mg capsule,extended release 24hr 1 cap PO DAILY 0RF Discharge Orders: Discharge Order (Routine); Ordered 09/14/21 Ordered By: Alex Kwok Diet: advance to usual diet Activity on Discharge: As tolerated Stand Alone Forms: Patient Portal Discharge page Care Plan Goals: Full work up of GI bleeding Health Concerns: Lower GI bleeding Plan of Treatment: To follow up with Dr. Vargas for outpatient colonoscopy To return to Ed promptly with any sings of bleeding again, avoid aspirin, motrin, advil Dr. Vargas's office will be in touch with you Assessment: As above
--- NOTE | 2021-09-14 11:55 | OP_ITS ---
SURGEON: Cameron Vargas MD INDICATIONS: The patient presents for evaluation of melena and GI bleeding. Full consent has been obtained from him for this, including risks of bleeding and perforation. PREOPERATIVE DIAGNOSIS: Melena, gastrointestinal bleeding, anemia. POSTOPERATIVE DIAGNOSIS: Melena, gastrointestinal bleeding, anemia, minimal hiatal hernia, gastroesophageal reflux, rule out Vance's esophagus. PROCEDURE PERFORMED: Esophagogastroduodenoscopy with biopsy. ESTIMATED BLOOD LOSS: COMPLICATIONS: ANESTHESIA: Monitored anesthesia care. ASSISTANTS: SPECIMENS: DESCRIPTION OF PROCEDURE: The patient was placed in the left lateral decubitus position. The Olympus video gastroscope was passed into the posterior oropharynx and upper esophagus under direct vision. The scope was passed slowly to the distal esophagus. The gastroesophageal junction appeared at 40 cm. There was some slight irregularity with less than 1 cm areas of possible Vance mucosa. There was no esophagitis nor ulceration. The scope easily entered the stomach. There was a minimal hiatal hernia. The scope was advanced to the pylorus and the duodenum was cannulated to the descending portion. The duodenum including the bulb was carefully inspected and there was no sign of any ulceration or mass. I did not visualize any angiodysplasias. There was no blood nor coffee-grounds material. The scope was withdrawn back in the stomach. The gastric antrum and body appeared normal with good peristalsis. The scope was retroflexed visualizing the proximal stomach carefully, which appeared normal, without any sign of mass or ulceration. I did not visualize any sign of blood, coffee-grounds material, angiodysplasias, nor any sign of a Dieulafoy lesion. The scope was withdrawn back from the esophagus. Biopsies were obtained from the EG junction at 40 cm. Proximal to this, the esophageal mucosa appeared normal. The scope was withdrawn from the patient. He tolerated the procedure well and was returned to recovery area in stable condition. IMPRESSION: Minimal hiatal hernia, gastroesophageal reflux, rule out Vance's esophagus. PLAN: Obviously these findings today would not account for the presentation with bleeding and anemia. He did have primary dark stool, but did have some red blood with it, and his BUN was always normal. Therefore, this may have been a lower GI bleed, perhaps from the right side of the colon. As such, he should have a colonoscopy. At this point, he has been very stable without any further signs of bleeding overnight and his hemoglobin has remained very stable as well. As such, I did offer to do a colonoscopy for him tomorrow. However, he would like to definitely go home today. I advised him to speak with his and then decide about doing a colonoscopy tomorrow or we could bring him back as an outpatient in the very near future. If he was to go home today, he is fully aware to come back if he sees any signs of further bleeding. We shall await his decision and then proceed accordingly. In the meantime, I would keep him on an oral PPI for several weeks and then have him use it p.r.n. thereafter given the relatively minimal findings. This has all been discussed with the patient and his in detail. They are comfortable with this plan. MD BEN Silverman/ZANE / [id number] MTDD
[2021-09-14 12:00] VITALS: BP 111/57; PULSE 45; RESP 18; TEMP 36.7; O2SAT 99
--- NOTE | 2021-09-14 12:13 | PM.EVENT ---
Event Note Date of Service: 09/14/21 Event Note: GI-Spoke with patient and . He wants to go home today and do the colonoscopy as an outpatient. Will advance diet and check CBC at 1PM. If all is stable he can go home later this afternoon. Advised him to avoid all aspirin and NSAIDs. Advised to come back to ER if rebleeds. My office will coordinate an outpatient colonoscopy in the near future. The patient and his were comfortable with that plan. Thanks
[2021-09-14] MEDS: Omeprazole 20 MG CAPSULE.DR PO (12:31)
[2021-09-14 13:11] LABS: MANUAL DIFF FLAG NO
[2021-09-14 13:19] LABS: Basophils Absolute Auto 0.1 X10*3/uL (0.0-0.2); Eosinophils Absolute Auto 0.1 X10*3/uL (0.0-0.4); Eosinophils Percent Auto 2.1 % (0-4); Hematocrit 32.5 % (42.0-52.0); Hemoglobin 10.9 g/dl (14.0-18.0); Imm Gran Abs Auto 0.02 X10*3/uL (0.00-0.03); Imm Gran Pct Auto 0.4 % (0.0-0.4); Lymphocytes Absolute Auto 1.7 X10*3/uL (1.2-4.9); Lymphocytes Percent Auto 33.3 % (20-40); Mean Corpuscular HGB Conc 33.5 g/dl (31.0-36.0); Mean Corpuscular Hemoglobin 29.8 pg (27.0-33.0); Mean Corpuscular Volume 88.8 fL (80.0-98.0); Monocytes Absolute Auto 0.5 X10*3/uL (0.1-1.2); Monocytes Percent Auto 8.7 % (2-11); Neutrophils Absolute Auto 2.8 x10*3/uL (2.0-8.3); Neutrophils Percent Auto 54.5 % (45-73); Platelet Count 276 X10*3/uL (160-400); Red Blood Count 3.66 X10*6/uL (4.60-5.80); Red Cell Distribution Width 12.4 % (11.0-16.0); White Blood Count 5.2 X10*3/uL (4.8-10.8)
--- NOTE | 2021-09-14 14:50 | MHC.CM.PN ---
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 D/C PLAN: ANTIC HOME LATER TODAY SELF-CARE W/ FOR TRANSPORT.
--- NOTE | 2021-09-15 13:50 | HO.POSTANES ---
Post Anesthesia Evaluation Post Anesthesia Evaluation Anesthesia: Monitored Mental Status: Awake Pain Control: Satisfactory Nausea/Vomiting: None Hydration: Adequate Anesthesia-Related Issues: No Anes. Related Issues
== END 2021-09-14 14:40 | disposition home or self-care (01) | DRG 253 ==
LOC: HO.ED 11:32 → HO.EDOVER 15:34 → HO.S3 19:40
PROVIDERS: Internal Medicine; Admitting Provider Internal Medicine; Emergency Provider Student in an Organized Health Care Education/Training Program; PCP Internal Medicine; Visit Provider Internal Medicine
PROC: 0DB48ZX Excision of Esophagogastric Junction, Via Natural or Artificial Opening Endoscopic, Diagnostic (ICD-10-PCS; principal; 2021-09-14 10:00)
DX: K92.2 Gastrointestinal hemorrhage, unspecified (principal); K22.70 Barrett's esophagus without dysplasia; K21.9 Gastro-esophageal reflux disease without esophagitis; D62 Acute posthemorrhagic anemia; K44.9 Diaphragmatic hernia without obstruction or gangrene; Z20.822 Contact with and (suspected) exposure to COVID-19; Z79.899 Other long term (current) drug therapy
CPT/HCPCS: 36415; 74177; 80048; 80053; 82272; 85025; 85027; 85610; 86850; 86900; 86901; 87635; 88305; 96361; 96374; 99285; J2405; J3010; Q9967

== ENCOUNTER → 2021-09-18 10:09 | Day surgery (SDC) | payer BC, SELFPAY ==
--- NOTE | 2021-09-17 11:48 | HO.ANESPROP2 ---
Documented by User: Megan Dozier NP 09/17/21 11:49 HPI - Anesthesia Eval Consult details Narrative: 31yo M for Colonoscopy s/p EGD 09/15/21 with MAC PMF Active Problems Active Problems: All Active Problems (Updated 09/14/21 @ 09:12 by Alex Kwok MD) Acute blood loss anemia (Acute) GI bleed (Acute) Past Medical History Medical History (Updated 09/18/21 @ 10:29 by Zo Cruz, RN) Bradycardia Bradycardia Family History Family history of problems with anesthesia: No Surgical History Surgical History (Updated 09/18/21 @ 09:27 by Zo Cruz, RN) Hx of esophagogastroduodenoscopy History of Problems with Anesthesia: No Social History Social History Household Members: Spouse Housing: House Unable to assess alcohol history related to: Unknown Patient Tobacco Use Status: Never used Tobacco Are you DNR?: No Advance Directives: No Advance Directives Information Provided: Yes service: No Current occupational status: employed Meds Allergies Allergy/AdvReac Type Severity Reaction Status Date / Time No Known Allergies Allergy Verified 09/13/21 09:30 Home Medications Medication Instructions Recorded Confirmed Last Taken Type dextroamphetamine-amphetamine ER 1 cap PO DAILY 09/13/21 09/13/21 09/16/21 History 30 mg 24hr capsule,extend release (Adderall XR) Exam Exam Date and Time: September 17, 2021 1148 Pertinent Lab Results Pertinent Lab Results: Laboratory Tests 09/14/21 09/14/21 04:58 12:58 WBC 5.2 Hgb 10.9 L Hct 32.5 L Plt Count 276 Sodium 140 Potassium 4.0 Chloride 107 Carbon Dioxide 26 BUN 10 Creatinine 0.78 Assessment and Plan Assessment Anesthesia Assessment: Chart Reviewed Final Anesthetic Review Family History of Problems with Anesthesia: No History of Problems with Anesthesia: No Documented by User: Sagrario Mejia MD 09/18/21 10:50 PMF Past Medical History Medical History (Updated 09/18/21 @ 10:29 by Zo Cruz RN) Bradycardia Bradycardia Surgical History Surgical History (Updated 09/18/21 @ 09:27 by Zo Cruz RN) Hx of esophagogastroduodenoscopy Social History Social History Household Members: Spouse Housing: House Unable to assess alcohol history related to: Unknown Patient Tobacco Use Status: Never used Tobacco Are you DNR?: No Advance Directives: No Advance Directives Information Provided: Yes service: No Current occupational status: employed Meds Allergies Allergy/AdvReac Type Severity Reaction Status Date / Time No Known Allergies Allergy Verified 09/13/21 09:30 Home Medications Medication Instructions Recorded Confirmed Last Taken Type dextroamphetamine-amphetamine ER 1 cap PO DAILY 09/13/21 09/13/21 09/16/21 History 30 mg 24hr capsule,extend release (Adderall XR) Exam Airway Mallampati Class: I TM Dist: >3cm Neck ROM: Full Assessment and Plan Assessment Anesthesia Assessment: Anesthesia Plan Discussed Final Anesthetic Review NPO: Yes ASA Class: II Final Preanesthetic Review: No Changes in Pt Med Stat, Meds/Allgs Chart Reviewed, Consent Obtained/Reviewed and Anes Risks/Benef Reviewed Patient Risk: Low Procedure Risk: Low Anesthetic Plan Anesthetic Plan: MAC: Disposition: Standard PACU
[2021-09-18 09:22] VITALS: BMI 27.1
[2021-09-18 10:11] VITALS: BP 145/98; PULSE 92; RESP 17; TEMP 36.1; O2SAT 98; BMI 27.1
[2021-09-18] MEDS: Lactated Ringers 1,000 ML 100 ML IVCONT (10:36)
[2021-09-18 11:19] LABS: MANUAL DIFF FLAG NO
[2021-09-18 11:29] LABS: Basophils Absolute Auto 0.1 X10*3/uL (0.0-0.2); Basophils Percent Auto 1.1 % (0-2); Eosinophils Absolute Auto 0.1 X10*3/uL (0.0-0.4); Eosinophils Percent Auto 2.8 % (0-4); Hematocrit 30.8 % (42.0-52.0); Hemoglobin 10.6 g/dl (14.0-18.0); Imm Gran Abs Auto 0.04 X10*3/uL (0.00-0.03); Imm Gran Pct Auto 0.9 % (0.0-0.4); Lymphocytes Absolute Auto 1.2 X10*3/uL (1.2-4.9); Lymphocytes Percent Auto 24.7 % (20-40); Mean Corpuscular HGB Conc 34.4 g/dl (31.0-36.0); Mean Corpuscular Hemoglobin 30.5 pg (27.0-33.0); Mean Corpuscular Volume 88.8 fL (80.0-98.0); Mean Platelet Volume 9.3 fL (9.4-12.4); Monocytes Absolute Auto 0.5 X10*3/uL (0.1-1.2); Monocytes Percent Auto 10.4 % (2-11); Neutrophils Absolute Auto 2.8 x10*3/uL (2.0-8.3); Neutrophils Percent Auto 60.1 % (45-73); Platelet Count 323 X10*3/uL (160-400); Red Blood Count 3.47 X10*6/uL (4.60-5.80); Red Cell Distribution Width 12.7 % (11.0-16.0); White Blood Count 4.7 X10*3/uL (4.8-10.8)
[2021-09-18 11:30] LABS: INTERNATIONAL NORM RATIO 1.2 (0.9-1.1); Prothrombin Time 13.5 SEC (9.9-13.0)
[2021-09-18 11:36] LABS: Anion Gap 11 (12-20); Blood Urea Nitrogen 11 mg/dL (9-16); Calcium 8.9 mg/dL (8.4-10.2); Carbon Dioxide 28 mmol/L (22-29); Chloride 104 mmol/L (96-108); Creatinine Clr Calc Pharmacy 137.8; Estimated Glomerular Filt Rate > 60; Glucose Fasting 92 mg/dL (60-99); Potassium 4.9 mmol/L (3.3-5.1); Sodium 138 mmol/L (135-145)
--- NOTE | 2021-09-18 13:31 | PM.OP ---
Brief Operative Note Date of Service: 09/18/21 Pre-op diagnosis: GI Bleed Post-op diagnosis: other (Rectal ulcers) Procedure: Colonoscopy to cecum and TI with heater probe, sclero with Epi 1:10,000, Clipping x1, and biopsies Surgeon: Cameron Vargas Anesthesia: MAC Was an Remote Sensing Program Manager used for this Procedure?: No Estimated blood loss (mL): 3.0 Pathology: other (A. Margins of rectal ulcer) Condition: stable Disposition: PACU
[2021-09-18 13:32] VITALS: BP 128/59; PULSE 106; RESP 18; TEMP 36.1; O2SAT 100
--- NOTE | 2021-09-18 13:36 | PM.EVENT ---
Event Note Date of Service: 09/18/21 Event Note: Colonoscopy 1. 2 very distal rectal ulcers, 1 with an apparent vessel. No active bleeding. Ulcer with vessel treated with Epi 1:10,000, cauterized with the Gold probe, clipped x1, and finally treated with Hemo spray. I biopsied margins of ulcer x 2. Rec: Admit, observe, clear liquid diet, surgery consult if active bleeding, await path. D/W in detail. Thanks
[2021-09-18 13:47] VITALS: BP 126/83; PULSE 72; RESP 17; TEMP 36.1; O2SAT 99
--- NOTE | 2021-09-18 22:00 | CONS_ITS ---
DATE OF SERVICE: 09/18/2021 REASON FOR CONSULTATION: Lower gastrointestinal bleeding and rectal ulcers. HISTORY OF PRESENT ILLNESS: The patient is a 31-year-old male who I initially met on September 13. He had been admitted to the hospital the evening before for GI bleeding. At that time, he described a combination of both black stool as well as some bright red blood in the toilet bowl around the black stool. He was not having any particular GI symptoms at that time and denied using any significant amounts of aspirin, nor NSAIDs. At the time he described that prior to the bleeding his bowel movements had been regular and without any signs of bleeding nor any particular changes, otherwise, such as significant constipation or diarrhea. He was not having any abdominal pain. He underwent upper endoscopy on September 14, given what sounded like an upper GI bleed based on the report of black stool, although he was not having any particular upper GI symptoms and his BUN remained normal. Nonetheless, we did have him undergo an upper endoscopy, which was normal, other than some changes of reflux and a small hiatal hernia. At that time, the plan was discussed with him and his in regard to the need for colonoscopy. However, he decided that he wanted to go home. Things were otherwise stable over the course of the remainder of the day, September 14, and I felt it was safe to send him home and bring him back as an outpatient for a colonoscopy. As such, he returned today, September 18, for his colonoscopy. He described that things had been very stable at home up until last evening when he started his bowel prep. Since drinking the MiraLax prep, he had at least 5 or 6 bloody bowel movements which he described, as well as showing me a picture, of some fresh blood. He was hemodynamically stable in the short-stay surgery area and his hemoglobin was 10.6, which was basically unchanged from his discharge hemoglobin of 10.9 on September 14. He underwent his colonoscopy, which was dictated in a separate note, which revealed two distal rectal ulcers. I was able to reach the cecum and terminal ileum. The remainder of the proximal colon and terminal ileum all appeared normal. There was some bloody liquid stool in the sigmoid and descending colon. However, there were no other mucosal abnormalities noted. One of the two rectal ulcers had what appeared to be a visible vessel. Therefore, this was treated with epinephrine, cauterization, clipping, and Hemospray. The patient was hemodynamically stable and transferred to the ER for further evaluation and observation. Of note, today he does describe some history of constipation, although not on a regular basis from what he says. He denies any high risk sexual activitiy, anal sex, or other high risks activity that could predispose him to HIV infection with its association with infectious or neoplastic processes involving the etiology of rectal ulcers. MEDICATIONS: At home, omeprazole. Adderall. PAST MEDICAL HISTORY: ADD. GI bleeding. Reflux. Surgery for bilateral gynecomastia. He denies history of heart disease, diabetes, stroke, lung disease, nor kidney disease. 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 He does not smoke, nor use any significant amounts of alcohol. He is . FAMILY HISTORY: There is a cousin with a history of colon cancer and another cousin with a history of Crohn's disease.. REVIEW OF SYSTEMS: CONSTITUTIONAL: Over the past 2 to 3 days prior to the colonoscopy, he had been feeling well, although somewhat tired from the hospitalization. CARDIAC: No chest pain. PULMONARY: No cough. No hemoptysis. GASTROINTESTINAL: As above. GENITOURINARY: No dysuria or hematuria. PHYSICAL EXAMINATION: GENERAL: The patient is a pleasant, alert male. He is still somewhat sleepy after the colonoscopy. HEENT: Anicteric sclerae. NECK: Supple. SKIN: Warm and dry. ABDOMEN: Soft, nondistended, nontender. EXTREMITIES: Without edema. LABORATORY DATA: CBC as above. Other labs from earlier today included a PT of 13.9 with INR 1.2. Normal electrolytes. BUN 11, creatinine 0.9, and normal liver profile. He did have a CT scan of the abdomen and pelvis today, which was unremarkable. There was no sign of any GI pathology other than 3 radiopaque structures in the rectum, consistent with his previous colonoscopy earlier today with placement of clips. There is no sign of any inflammatory changes in the perirectal area, free air, nor any fluid. The remainder of the scan was unremarkable as well. IMPRESSION: The patient presents with ongoing gastrointestinal bleeding in relation to distal rectal ulcers. The etiology of these are not clear. He does describe some constipation raising the potential for stercoral ulcers, although I think, that would be unusual given his otherwise healthy status, good mobility, and at least what he describes as nothing severe in regard to the constipation. This may represent possibly isolated Crohn's disease. He denies any sexual activity, i.e., anal receptive sex, that might predispose to an infectious or neoplastic process of the distal rectum. We may need to consider treating for Crohn's disease as well depending upon his clinical course. He may need surgical consultation, if he begins having recurrent active bleeding from this area. He will continue on clear liquids and have followup CBCs. This has all been discussed in detail with the patient and his . Thanks you for this consultation. MD BEN Silverman/ZANE / [id number] MTDD
--- NOTE | 2021-09-18 22:00 | OP_ITS ---
SURGEON: Cameron Vargas MD INDICATIONS: The patient presents for evaluation of GI bleeding. Full consent has been obtained from him for this, including risks of bleeding and perforation. PREOPERATIVE DIAGNOSIS: Gastrointestinal bleeding. POSTOPERATIVE DIAGNOSIS: PROCEDURE PERFORMED: Colonoscopy to the cecum and terminal ileum with sclerotherapy of distal rectal ulcer with epinephrine in a dilution of 1:10,000, Gold Probe cautery of rectal ulcer, Resolution clipping of rectal ulcer, and application of Hemospray to rectal ulcer. Biopsies were taken as well. ESTIMATED BLOOD LOSS: COMPLICATIONS: ANESTHESIA: Monitored anesthesia care. Epinephrine in a dilution of 1:10,000. ASSISTANTS: SPECIMENS: POSTOPERATIVE DIAGNOSES: Gastrointestinal bleeding. Distal rectal ulcers. DESCRIPTION OF PROCEDURE: The patient was placed in the left lateral decubitus position. The digital rectal exam revealed no perianal disease, nor any palpable abnormalities. The [employer] video pediatric colonoscope was entered into the rectum. I immediately visualized a single ulcer with some edematous margins in the distal rectum, but nothing appearing grossly malignant. There was no active bleeding. There was some blood in the rectum, but also a abbey colored brown liquid stool above that. Therefore, I was concerned he had other proximal bleeding lesions. I was able to advance to the cecum with the assistance of abdominal wall pressure. Advancement was difficult due primarily to a lot of residual liquid stool. The liquid stool in the sigmoid and descending colon did appear somewhat blood-tinged, but the transverse colon and ascending colon had just brown liquid stool. Once in the cecum, I did identify normal-appearing cecal pouch with appendiceal orifice and a normal-appearing ileocecal valve. The terminal ileum was cannulated for least 5 cm to 10 cm and appeared normal. There was no sign of any ileitis nor any blood. The scope was withdrawn back in the colon. The entire cecum and ileocecal valve appeared normal. The scope was then slowly withdrawn assessing all mucosal surfaces carefully. After copious irrigation and suctioning, the preparation became very good throughout the colon. I did not visualize any other mucosal abnormalities, polyps, nor angiodysplasia. In the rectum, the scope was retroflexed visualizing the distal rectum carefully, which was partially obscured by liquid stool, which I did attempt to irrigate and suction as best as possible. I did not visualize any abnormalities in the retroflexed position. However, in the forward viewing position, I was able to visualize the above-mentioned ulcer. This had edematous margins, but did not appear grossly malignant. The ulcer itself was approximately 1.5 cm in diameter. The base of the ulcer had a slightly raised purplish lesion, consistent with a probable vessel given his clinical history of ongoing bleeding overnight. I also noted in the even more distal rectum and probably entering the anal canal was another ulcer, but with a clean base and no sign of any visible vessel and again appearing grossly benign. Given the patient's history, I did opt to treat the more proximal ulcer with what appeared to be a visible vessel. I initially injected epinephrine in a dilution of 1:10,000, with a sclerotherapy needle into the margins with good blanching. I then used the Gold Probe cautery to cauterize the ulcer base and the vessel with good hemostasis again noted. At that point, I applied a single Resolution clip to the remnant of what appeared to be the vessel with good application and good hemostasis. Of note, two other attempts at clip deployment were unsuccessful, but did adhere to the surrounding mucosa. Finally, I opted to apply Hemospray to the ulcer site as well. This also appeared to have good application. There remained good hemostasis of the ulcer area. I then opted to obtain two biopsies from the margins of the ulcer. The scope was then withdrawn from the patient. He tolerated the procedure well and was returned to the recovery area in stable condition. IMPRESSION: Two distal rectal ulcers, the more proximal one showing what appeared to be a visible vessel in the base of the ulcer and treated as above with epinephrine, cauterization, clipping, and Hemospray. PLAN: At this point, the patient will be admitted through the emergency room for further observation. He will be kept on a clear liquid diet. He will have followup blood counts to be sure things remain stable. The results of biopsies will be checked. If he has ongoing significant bleeding, I would then recommend surgical consultation. Hopefully today's procedure will help to prevent further bleeding. The etiology of these very distal rectal ulcers is not clear, but this may represent a type of stercoral ulcer. This may represent some isolated Crohn's disease. Other possibilities such as neoplasm or infection will be assessed with biopsies. He may need a repeat endoscopic exam at some point as well. He does need to avoid all aspirin and NSAIDs. This has all been discussed with the patient and his today. MD BEN Silverman/ZANE / [phone] MICHAEL
== END ==
PROVIDERS: PCP Internal Medicine; Visit Provider Internal Medicine
PROC: 0DJD8ZZ Inspection of Lower Intestinal Tract, Via Natural or Artificial Opening Endoscopic (ICD-10-PCS; CPT 45378; principal; 2021-09-18 11:00)
DX: K92.1 Melena (principal); K62.6 Ulcer of anus and rectum; K21.9 Gastro-esophageal reflux disease without esophagitis; K44.9 Diaphragmatic hernia without obstruction or gangrene; K59.00 Constipation, unspecified; F98.8 Other specified behavioral and emotional disorders with onset usually occurring in childhood and adolescence; Z79.899 Other long term (current) drug therapy
CPT/HCPCS: 45382; 36415; 80048; 85025; 85610; 86850; 86900; 86901; 88305; J0171

== ENCOUNTER 2021-09-18 14:12 | Observation (INO) | payer BC, SELFPAY ==
--- NOTE | ~2021-09-18 | CT_ITS ---
EXAMINATION: CT ABDOMEN AND PELVIS WITHOUT CONTRAST CLINICAL INFORMATION: Status post colonoscopy on 09/18/2021. Severe rectal pain and bleeding. COMPARISON: 09/13/2021 TECHNIQUE: Multidetector volumetric imaging was performed from the superior aspect of the liver through the pubic symphysis. Sagittal and coronal reformatted images were obtained on the technologist's workstation. This CT examination was performed using dose optimization techniques as appropriate, variously including the following: *Automated exposure control *Adjustment of mA and/or kV according to patient size (this includes techniques or standardized protocols for targeted exams where dose is matched to indication/reason for exam; i.e. extremities or head) *Use of iterative reconstruction technique DLP: 481 mGy-cm FINDINGS: LUNG BASES: The visualized lung bases are unremarkable. LIVER, GALLBLADDER, AND BILIARY TREE: The liver is normal in size, shape, and attenuation. No focal hepatic lesion or biliary ductal dilatation is present. The gallbladder is unremarkable with no evidence of radiopaque gallstones, gallbladder wall thickening, or obvious pericholecystic inflammatory changes. PANCREAS: Unremarkable. SPLEEN: Unremarkable. ADRENAL GLANDS: Unremarkable. KIDNEYS AND URETERS: The kidneys are normal in size, shape, and attenuation. No hydronephrosis, hydroureter, or calculi seen. No perinephric stranding. BLADDER: Unremarkable. GASTROINTESTINAL TRACT: The stomach is unremarkable. Normal caliber small bowel. There is no obstruction. Normal appendix. No significant colonic wall thickening or adjacent inflammation. The rectum is decompressed. There are 3 radiopaque structures within the rectum, possibly clips. No inflammatory changes are seen surrounding the rectum. There is no free air. No free fluid. ABDOMINAL WALL: No significant hernia is appreciated. LYMPH NODES: Normal. VASCULAR: Unremarkable. PELVIC VISCERA: The prostate and seminal vesicles are unremarkable. OSSEOUS STRUCTURES: No acute or suspicious osseous abnormality. CT/CT abdomen pelvis wo con IMPRESSION: There are 3 radiopaque structures within the rectum, possibly clips. No inflammatory changes. No evidence of perforation. No acute findings of the abdomen or pelvis. Fleischner guidelines were followed.
--- NOTE | 2021-09-18 14:15 | ECG_ITS ---
Test Reason : gi bleed Blood Pressure : / mmHG Vent. Rate : 060 BPM Atrial Rate : 060 BPM P-R Int : 166 ms QRS Dur : 104 ms QT Int : 428 ms P-R-T Axes : 067 085 053 degrees QTc Int : 428 ms Normal sinus rhythm Normal ECG No previous ECGs available Referred By: Beena Morgan Electronically Signed By:MICAELA MONTEMAYOR
[2021-09-18 14:16] VITALS: BP 128/85; PULSE 50; RESP 18; TEMP 36.5; O2SAT 100; BMI 27.1
--- NOTE | 2021-09-18 14:16 | ED_ITS ---
HPI - General Adult General Chief complaint: GI Bleed Stated complaint: GI bleed Time Seen by Provider: 09/18/21 14:14 Source: patient Mode of arrival: ambulatory Limitations: no limitations History of Present Illness HPI narrative: Patient comes to the emergency room from the PACU. Earlier this morning, patient had a colonoscopy done, distal rectal ulcers were visualized, ulcers with vessels which were treated with epinephrine, cauterized, clipped and hemo spray, biopsies obtained. After the procedure, patient went to the bathroom, patient had significant amount of rectal bleeding. Dr. Del Real called the ED to give us report. This time, patient complaining of significant rectal/anal pain, mild lightheadedness with standing with standing, no abdominal pain, no chest pain, no shortness of breath. Related Data Home Medications Medication Instructions Recorded Confirmed dextroamphetamine-amphetamine ER 1 cap PO DAILY 09/13/21 09/18/21 30 mg 24hr capsule,extend release (Adderall XR) Allergies Allergy/AdvReac Type Severity Reaction Status Date / Time No Known Allergies Allergy Verified 09/18/21 14:16 Review of Systems Review of Systems: Constitutional : No Weight loss, No Fever, No Chills, No Night Sweats, No Fatigue, No Malaise ENT/Mouth : No Hearing loss, No Ear Pain, No Nasal Congestion, No Sinus Pain, No Hoarseness, No sore throat, No Rhinorrhea, No Swallowing Difficulty Eyes: No Eye Pain, No Swelling, No Redness, No Foreign Body, No Discharge, No Vision Changes Cardiovascular : No Chest Pain, No SOB, No Dyspnea on Exertion, No Orthopnea, No Edema, No Palpitations Respiratory : No Cough, No Sputum, No Wheezing, No Smoke Exposure, No Dyspnea Gastrointestinal : No Nausea, No Vomiting, No Diarrhea, No Constipation, No abdominal Pain, complaining of rectal bleeding and rectal/anal pain Genitourinary : no irregular bleeding, No Dysuria, No Urinary Frequency, No Hematuria, No Urinary Incontinence, No Urgency, No Flank Pain, No Urinary Flow Changes, No Hesitancy Musculoskeletal : No joint pain, No Myalgias, No Joint Swelling Skin : No Skin Lesions, No rash Neuro : No Weakness, No Numbness, No Paresthesias, No Loss of Consciousness, No Dizziness, No Headache Psych : No Anxiety/Panic, No Depression, No SI/HI/AH/VH, No Social Issues, Heme/Lymph: No Bruising, No Bleeding,No Lymphadenopathy Endocrine : No Polyuria, No Polydipsia, No Temperature Intolerance [facility] Past Medical History Medical History (Updated 09/18/21 @ 17:04 by Beena Morgan MD) Bradycardia GI bleed Rectal ulcer Surgical History Hx of esophagogastroduodenoscopy Social History Social History Household Members: Spouse Housing: House Unable to assess alcohol history related to: Unknown Patient Tobacco Use Status: Never used Tobacco Advance Directives: No Advance Directives Information Provided: No service: No Current occupational status: employed Physical Exam ED Vital Signs: Vital Signs - 24 hr 09/18/21 14:16 09/18/21 15:05 Temperature 97.7 F Pulse Rate 50 50 Respiratory Rate 18 Blood Pressure 128/85 114/69 Pulse Oximetry 100 Oxygen Delivery Method Room Air BMI result Body Mass Index 27.1 Const Other: Appearance: Alert. Oriented X3. Seems uncomfortable Eyes: Pupils equal, round and reactive to light. ENT: Pharynx normal. Neck: Normal inspection. Neck supple. No lymph nodes noted. No crepitus CVS: Normal heart rate and rhythm. Pulses normal. Normal S1 and S2 Respiratory: No respiratory distress. Breath sounds normal. No Wheezing. No rales Abdomen: Soft and nontender. No rigidity. No distention. No external hemorrhoids or active bleeding on external rectal exam, due to recent biopsy, ALEIDA will not be done Skin: Skin warm and dry. Normal skin color. Normal skin turgor. Extremities: No lower extremity edema. No Lacerations. No Rash Neuro: Oriented X 3. No motor deficit. No sensory deficit. Moving all extremities. No slurred speech. CN 2 through 12 grossly intact Psych: calm, cooperative, normal affect Course Course Course Narrative: At this time, we will repeat all labs, monitor H&H changes. Patient is aware of the plan, he will be admitted for observation Patient overall feeling much better. Still slightly lightheaded, no chest pain or shortness of breath. CT scan does not show any acute pathology, surgical clips presents Medical Decision Making Lab Data Result diagrams: 09/18/21 14:34 09/18/21 14:34 Labs: Lab Results 09/18/21 09/18/21 09/18/21 Range/Units 14:34 14:34 14:34 WBC 7.2 (4.8-10.8) X10*3/uL RBC 3.25 L (4.60-5.80) X10*6/uL Hgb 9.8 L (14.0-18.0) g/dl Hct 28.9 L (42.0-52.0) % MCV 88.9 (80.0-98.0) fL MCH 30.2 (27.0-33.0) pg MCHC 33.9 (31.0-36.0) g/dl RDW 12.6 (11.0-16.0) % Plt Count 286 (160-400) X10*3/uL MPV 9.2 L (9.4-12.4) fL Immature Gran % (Auto) 1.0 H (0.0-0.4) % Neut % (Auto) 74.8 H (45-73) % Lymph % (Auto) 15.0 L (20-40) % [place] % (Auto) 7.1 (2-11) % Eos % (Auto) 1.7 (0-4) % Baso % (Auto) 0.4 (0-2) % Lymph # (Auto) 1.1 L (1.2-4.9) X10*3/uL [place] # (Auto) 0.5 (0.1-1.2) X10*3/uL Eos # (Auto) 0.1 (0.0-0.4) X10*3/uL Baso # (Auto) 0.0 (0.0-0.2) X10*3/uL Abs Immat Gran (auto) 0.07 H (0.00-0.03) X10*3/uL Absolute Neuts (auto) 5.4 (2.0-8.3) x10*3/uL Absolute Nucleated RBC 0.000 (0.0-0.012) X10*3/uL Nucleated RBC % (auto) 0.0 (0.0-0.2) /100WBC PT 13.9 H (9.9-13.0) SEC INR 1.2 H (0.9-1.1) Sodium 137 (135-145) mmol/L Potassium 4.5 (3.3-5.1) mmol/L Chloride 104 (96-108) mmol/L Carbon Dioxide 27 (22-29) mmol/L Anion Gap 11 L (12-20) BUN 11 (9-16) mg/dL Creatinine 0.85 (0.5-1.4) mg/dL Estim Creat Clear Calc 139.4 Estimated GFR > 60 Random Glucose 137 H D (60-115) mg/dL Calcium 8.4 (8.4-10.2) mg/dL Total Bilirubin 0.3 (0.0-1.0) mg/dL Direct Bilirubin 0.2 (0.0-0.5) mg/dL AST 16 (5-37) U/L ALT 12 (0-40) U/L Alkaline Phosphatase 47 (39-117) U/L Total Protein 5.7 L (6.5-8.0) g/dL Albumin 3.7 (3.5-5.0) g/dL COVID-19 ([facility]) (Negative) COVID-19 Clin Com 09/18/21 Range/Units 14:34 WBC (4.8-10.8) X10*3/uL RBC (4.60-5.80) X10*6/uL Hgb (14.0-18.0) g/dl Hct (42.0-52.0) % MCV (80.0-98.0) fL MCH (27.0-33.0) pg MCHC (31.0-36.0) g/dl RDW (11.0-16.0) % Plt Count (160-400) X10*3/uL MPV (9.4-12.4) fL Immature Gran % (Auto) (0.0-0.4) % Neut % (Auto) (45-73) % Lymph % (Auto) (20-40) % [place] % (Auto) (2-11) % Eos % (Auto) (0-4) % Baso % (Auto) (0-2) % Lymph # (Auto) (1.2-4.9) X10*3/uL [place] # (Auto) (0.1-1.2) X10*3/uL Eos # (Auto) (0.0-0.4) X10*3/uL Baso # (Auto) (0.0-0.2) X10*3/uL Abs Immat Gran (auto) (0.00-0.03) X10*3/uL Absolute Neuts (auto) (2.0-8.3) x10*3/uL Absolute Nucleated RBC (0.0-0.012) X10*3/uL Nucleated RBC % (auto) (0.0-0.2) /100WBC PT (9.9-13.0) SEC INR (0.9-1.1) Sodium (135-145) mmol/L Potassium (3.3-5.1) mmol/L Chloride (96-108) mmol/L Carbon Dioxide (22-29) mmol/L Anion Gap (12-20) BUN (9-16) mg/dL Creatinine (0.5-1.4) mg/dL Estim Creat Clear Calc Estimated GFR Random Glucose (60-115) mg/dL Calcium (8.4-10.2) mg/dL Total Bilirubin (0.0-1.0) mg/dL Direct Bilirubin (0.0-0.5) mg/dL AST (5-37) U/L ALT (0-40) U/L Alkaline Phosphatase (39-117) U/L Total Protein (6.5-8.0) g/dL Albumin (3.5-5.0) g/dL COVID-19 ([facility]) Negative (Negative) COVID-19 Clin Com See Note Imaging Data CT scan - abdomen: Radiologist's impression: FINDINGS: LUNG BASES: The visualized lung bases are unremarkable.? LIVER, GALLBLADDER, AND BILIARY TREE: The liver is normal in size, shape, and attenuation. No focal hepatic lesion or biliary ductal dilatation is present. The gallbladder is unremarkable with no evidence of radiopaque gallstones, gallbladder wall thickening, or obvious pericholecystic inflammatory changes.? PANCREAS: Unremarkable.? SPLEEN: Unremarkable.? ADRENAL GLANDS: Unremarkable.? KIDNEYS AND URETERS: The kidneys are normal in size, shape, and attenuation. No hydronephrosis, hydroureter, or calculi seen. No perinephric stranding. ? BLADDER: Unremarkable.? GASTROINTESTINAL TRACT: The stomach is unremarkable. Normal caliber small bowel. There is no obstruction. Normal appendix. No significant colonic wall thickening or adjacent inflammation. The rectum is decompressed. There are 3 radiopaque structures within the rectum, possibly clips. No inflammatory changes are seen surrounding the rectum. There is no free air. No free fluid.? ABDOMINAL WALL: No significant hernia is appreciated.? LYMPH NODES: Normal. VASCULAR: Unremarkable. PELVIC VISCERA: The prostate and seminal vesicles are unremarkable.? OSSEOUS STRUCTURES: No acute or suspicious osseous abnormality.? CT/CT abdomen pelvis wo con IMPRESSION: There are 3 radiopaque structures within the rectum, possibly clips. No inflammatory changes. No evidence of perforation. ? No acute findings of the abdomen or pelvis.? ? Fleischner guidelines were followed. Discharge Plan Discharge Clinical Impression: GI bleed Patient Disposition: Admitted As Inpatient Prescriptions: No Action dextroamphetamine-amphetamine [Adderall XR] 30 mg capsule,extended release 24hr 1 cap PO DAILY
[2021-09-18] MEDS: Morphine Sulfate 4 MG/ML CARTRIDGE IVPUSH (14:21)
--- NOTE | 2021-09-18 14:27 | PHA.MEDREC ---
Pharmacy Consult ? Medication Reconciliation Pharmacy has completed the medication reconciliation. Patient her3 09/13. No changes. Ammy Kraft, AleksD
[2021-09-18 14:38] LABS: MANUAL DIFF FLAG NO
[2021-09-18 14:39] LABS: Basophils Percent Auto 0.4 % (0-2); Eosinophils Absolute Auto 0.1 X10*3/uL (0.0-0.4); Eosinophils Percent Auto 1.7 % (0-4); Hematocrit 28.9 % (42.0-52.0); Hemoglobin 9.8 g/dl (14.0-18.0); Imm Gran Abs Auto 0.07 X10*3/uL (0.00-0.03); Lymphocytes Absolute Auto 1.1 X10*3/uL (1.2-4.9); Mean Corpuscular HGB Conc 33.9 g/dl (31.0-36.0); Mean Corpuscular Hemoglobin 30.2 pg (27.0-33.0); Mean Corpuscular Volume 88.9 fL (80.0-98.0); Mean Platelet Volume 9.2 fL (9.4-12.4); Monocytes Absolute Auto 0.5 X10*3/uL (0.1-1.2); Monocytes Percent Auto 7.1 % (2-11); Neutrophils Absolute Auto 5.4 x10*3/uL (2.0-8.3); Neutrophils Percent Auto 74.8 % (45-73); Platelet Count 286 X10*3/uL (160-400); Red Blood Count 3.25 X10*6/uL (4.60-5.80); Red Cell Distribution Width 12.6 % (11.0-16.0); White Blood Count 7.2 X10*3/uL (4.8-10.8)
[2021-09-18 15:02] LABS: INTERNATIONAL NORM RATIO 1.2 (0.9-1.1); Prothrombin Time 13.9 SEC (9.9-13.0)
[2021-09-18 15:03] LABS: COVID-19 Test Negative (Negative); IDNOW Serial# 9DB6401D
[2021-09-18 15:05] VITALS: BP 114/69; PULSE 50
[2021-09-18 15:06] LABS: Alanine Aminotransferase 12 U/L (0-40); Albumin Level 3.7 g/dL (3.5-5.0); Alkaline Phosphatase 47 U/L (39-117); Anion Gap 11 (12-20); Aspartate Amino Transferase 16 U/L (5-37); Bilirubin Direct 0.2 mg/dL (0.0-0.5); Bilirubin Total 0.3 mg/dL (0.0-1.0); Blood Urea Nitrogen 11 mg/dL (9-16); Calcium 8.4 mg/dL (8.4-10.2); Carbon Dioxide 27 mmol/L (22-29); Chloride 104 mmol/L (96-108); Creatinine Clr Calc Pharmacy 139.4; Estimated Glomerular Filt Rate > 60; Glucose Random 137 mg/dL (60-115); Potassium 4.5 mmol/L (3.3-5.1); Sodium 137 mmol/L (135-145); Total Protein 5.7 g/dL (6.5-8.0)
--- NOTE | 2021-09-18 16:08 | P.HPHOSP_ITS ---
History of Present Illness Date of Service: 09/18/21 Chief Complaint: rectal bleed/Anemia 31 year male with with no signficant PMH admitted on September 13 with rectal bleed and had EGD the following day showing mild gastritis and scheduled to have outpatient colonoscopy which was done done today and noted to have a rectal ulcers that were injecting with epi, clipping and biopsied.. During the prep yesterday he had several episodes of carlos red blood but without symptoms. No bleeding since colonoscopy. Dr Hernández is recommending overnight observation got potentilal bleed. Of note hematocrit has dropped from 37 on September 13 to 28 today, he is hemodynamically stable. Review of Systems Review of Systems: no dizziness no rectal bleed at present, Yes all other systems are reviewed and are negative [facility] Medical History (Updated 09/18/21 @ 16:18 by Alex Kwok MD) Bradycardia GI bleed Rectal ulcer Pertinent family history: family history of early rectal cancer Surgical History Hx of esophagogastroduodenoscopy Social History Household Members: Spouse Housing: House Unable to assess alcohol history related to: Unknown Patient Tobacco Use Status: Never used Tobacco Advance Directives: No Advance Directives Information Provided: No service: No Current occupational status: employed Meds Allergies Allergy/AdvReac Type Severity Reaction Status Date / Time No Known Allergies Allergy Verified 09/18/21 14:16 Active Medications: Current Medications Sodium Chloride (Ns) 1,000 mls @ 100 mls/hr IVCONT .Q10H [facility] Pharmacy Consult (Consult Rx Perform Med Rec) 1 each MISCELLANE ONCE PRN PRN Reason: Consult order Sodium Chloride (0.9 % Sodium Chloride Flush 3 Ml Syringe) 3 ml IVFLUSH QSHIFT [facility] Home Medications Medication Instructions Recorded Confirmed Last Taken Type dextroamphetamine-amphetamine ER 1 cap PO DAILY 09/13/21 09/18/21 09/16/21 History 30 mg 24hr capsule,extend release (Adderall XR) Physical Exam Vital Signs and Narrative: Vital Signs: Last Vital Signs Temp 97.7 F 09/18/21 14:16 Pulse 50 09/18/21 15:05 Resp 18 09/18/21 14:16 BP 114/69 06/08/22 15:05 Pulse Ox 100 09/18/21 14:16 O2 Del Method 09/18/21 14:16 BMI result Body Mass Index 27.1 Const: Other: Constitutional: Alert, in no distress, Mental Status: Oriented to person, place and time. Eyes: Pupils are equal, round and reactive to light. Ear, Nose and Throat: Oropharynx clear, mucous membranes moist. Respiratory: Clear to auscultation. No wheezing, rales or rhonchi. Cardiovascular: S1 S2 regular. No murmurs, rubs or gallops. Gastrointestinal: Abdomen soft, non-tender, non-distended. Normal bowel sounds.? Neurologic: Cranial nerves II-XII grossly intact. No focal neurological deficits. Moves all extremities spontaneously.? Skin: No rashes or lesions.? Musculoskeletal: No cyanosis or clubbing. Psychiatric: Normal mood and affect? Results Labs CBC and Chem 7: 09/18/21 14:34 09/18/21 14:34 Labs: Laboratory Results - last 24 hr 09/18/21 09/18/21 09/18/21 14:34 14:34 14:34 MCV 88.9 MCH 30.2 MCHC 33.9 RDW 12.6 Plt Count 286 MPV 9.2 L Immature Gran % (Auto) 1.0 H Neut % (Auto) 74.8 H Lymph % (Auto) 15.0 L [place] % (Auto) 7.1 Eos % (Auto) 1.7 Baso % (Auto) 0.4 Lymph # (Auto) 1.1 L [place] # (Auto) 0.5 Eos # (Auto) 0.1 Baso # (Auto) 0.0 Abs Immat Gran (auto) 0.07 H Absolute Neuts (auto) 5.4 Absolute Nucleated RBC 0.000 Nucleated RBC % (auto) 0.0 PT 13.9 H INR 1.2 H Anion Gap 11 L Estim Creat Clear Calc 139.4 Estimated GFR > 60 Random Glucose 137 H D Calcium 8.4 Total Bilirubin 0.3 Direct Bilirubin 0.2 AST 16 ALT 12 Alkaline Phosphatase 47 Total Protein 5.7 L Albumin 3.7 COVID-19 ([facility]) COVID-19 Clin Com 09/18/21 14:34 MCV MCH MCHC RDW Plt Count MPV Immature Gran % (Auto) Neut % (Auto) Lymph % (Auto) [place] % (Auto) Eos % (Auto) Baso % (Auto) Lymph # (Auto) [place] # (Auto) Eos # (Auto) Baso # (Auto) Abs Immat Gran (auto) Absolute Neuts (auto) Absolute Nucleated RBC Nucleated RBC % (auto) PT INR Anion Gap Estim Creat Clear Calc Estimated GFR Random Glucose Calcium Total Bilirubin Direct Bilirubin AST ALT Alkaline Phosphatase Total Protein Albumin COVID-19 ([facility]) Negative COVID-19 Clin Com See Note Assessment and Plan (1) GI bleed: Status: Acute (2) Acute blood loss anemia: Status: Acute (3) Rectal ulcer: Status: Acute Plan 31/m with rectal ulcers, rectal bleeding and acute blood loss anemia s/p colonoscopy with biopsied of ulcers Plan: Observe for signs of bleeding, repeat H/H, clear liquid diet. Avoid any agent that can potentiate bleeding. Quality Stroke Does the patient have a stroke diagnosis?: No VTE Prior VTE?: No VTE Risk Level:: Medical - low VTE Device Contraindication: Procedure Contraindicated VTE Drug Contraindication: Treatment Not Indicated
[2021-09-18] MEDS: 0.9 % Sodium Chloride Flush 3 ML SYRINGE IVFLUSH (16:27)
[2021-09-18] MEDS: 0.9 % Sodium Chloride 1,000 ML 100 ML IVCONT (16:27)
--- NOTE | 2021-09-18 18:32 | PC.NURSE ---
Pain controlled. VSS. Report given to Daphnie VARGAS RN. Plan to transfer pt to floor
[2021-09-18 18:54] LABS: MANUAL DIFF FLAG NO
[2021-09-18 19:16] LABS: Basophils Percent Auto 0.5 % (0-2); Eosinophils Absolute Auto 0.1 X10*3/uL (0.0-0.4); Eosinophils Percent Auto 1.4 % (0-4); Hematocrit 28.3 % (42.0-52.0); Hemoglobin 9.5 g/dl (14.0-18.0); Imm Gran Abs Auto 0.02 X10*3/uL (0.00-0.03); Imm Gran Pct Auto 0.3 % (0.0-0.4); Lymphocytes Absolute Auto 1.4 X10*3/uL (1.2-4.9); Lymphocytes Percent Auto 21.4 % (20-40); Mean Corpuscular HGB Conc 33.6 g/dl (31.0-36.0); Mean Corpuscular Hemoglobin 29.8 pg (27.0-33.0); Mean Corpuscular Volume 88.7 fL (80.0-98.0); Mean Platelet Volume 9.9 fL (9.4-12.4); Monocytes Absolute Auto 0.3 X10*3/uL (0.1-1.2); Monocytes Percent Auto 4.4 % (2-11); Neutrophils Absolute Auto 4.6 x10*3/uL (2.0-8.3); Platelet Count 291 X10*3/uL (160-400); Red Blood Count 3.19 X10*6/uL (4.60-5.80); Red Cell Distribution Width 12.7 % (11.0-16.0); White Blood Count 6.3 X10*3/uL (4.8-10.8)
--- NOTE | 2021-09-18 19:38 | PM.EVENT ---
Event Note Date of Service: 09/18/21 Event Note: 7:30PM GI Follow up. Patient has been comfortable since getting to the ER from PACU. He denies any further rectal pain, abdominal pain, nor bleeding. His vital signs have been stable. His Hgb has been stable at 9.8 at 2:30PM and 9.[address] scan was unremarkable. I reviewed the colonoscopy findings with him in detail. He does describe a lot of relative constipation and intermittent straining with BM's. He does have a first cousin with Crohn's disease, and 2 non-first degree relatives with colorectal cancer. He denies any homosexual activity or other risk factors for anorectal infections or neoplasm. Diff dx: Stercoral ulcers, Crohn's diesease, Neoplasm, Infectious. Rec: Clear liqs tonight. Advance to full liquids 09/19 if stable, and he is agreeable to staying on a full liquid and very soft diet for a few days at home as well. If stable he can be discharged on 09/19 and we will follow up in the office. Will need to check biopsy results as well. He will need to be on a regular and daily bowel regimen as well. He may need further workup, including more biopsies, depending on his clinical course. D/W patient in detail and he is comfortable with this plan. Thanks
[2021-09-18 20:15] VITALS: BP 128/61; PULSE 50; RESP 20; TEMP 36.5; O2SAT 100
[2021-09-18 23:21] VITALS: BP 116/55; PULSE 60; RESP 16; TEMP 36.3; O2SAT 100
[2021-09-19] MEDS: 0.9 % Sodium Chloride 1,000 ML 100 ML IVCONT (03:26)
[2021-09-19 06:28] LABS: Hematocrit 26.6 % (42.0-52.0); Hemoglobin 8.9 g/dl (14.0-18.0); Mean Corpuscular HGB Conc 33.5 g/dl (31.0-36.0); Mean Corpuscular Hemoglobin 29.9 pg (27.0-33.0); Mean Corpuscular Volume 89.3 fL (80.0-98.0); Mean Platelet Volume 9.9 fL (9.4-12.4); Platelet Count 291 X10*3/uL (160-400); Red Blood Count 2.98 X10*6/uL (4.60-5.80); Red Cell Distribution Width 12.8 % (11.0-16.0); White Blood Count 5.3 X10*3/uL (4.8-10.8)
--- NOTE | 2021-09-19 08:17 | PM.GIPN ---
Subjective Subjective Date of Service: 09/19/21 Interval History: no abd or rectal pain had bm last night without blood Critical Care Time (minutes): 0 Physical Exam Vital Signs: Vital Signs: Last Vital Signs Temp 97.4 F 09/18/21 23:21 Pulse 60 09/18/21 23:21 Resp 16 09/18/21 23:21 BP 116/55 L 09/18/21 23:21 Pulse Ox 100 09/18/21 23:21 O2 Del Method 09/18/21 23:21 BMI result Body Mass Index 27.1 GI: Other: abdomen is soft and nontender Objective Data Labs CBC & Chem 7: 09/19/21 06:05 09/18/21 14:34 Procedures Date of Service Date of Service: 09/19/21 Progress Note: A&P Assessment and plan (1) GI bleed: Status: Acute Assessment and Plan: doing well hct stable allowing for hydration advance diet can d/c later if no problems Time Spent With Patient Time: Total time spent is greater than 50% in coordination of care (as documented) at patient's floor/unit and/or counseling patient: Quality Stroke Does the patient have a stroke diagnosis?: No VTE Prior VTE?: No VTE Risk Level:: Medical - low VTE Device Contraindication: Procedure Contraindicated VTE Drug Contraindication: Treatment Not Indicated
[2021-09-19 08:45] VITALS: BP 114/62; PULSE 65; RESP 18; TEMP 36.1; O2SAT 99
[2021-09-19] MEDS: 0.9 % Sodium Chloride Flush 3 ML SYRINGE IVFLUSH (09:11)
--- NOTE | 2021-09-19 10:28 | P.PNIM_ITS ---
Subjective Subjective Date of Service: 09/19/21 Interval History: f/u rectal bleed, rectal ulcer interval history: no bleed overnight, no pain Review of Systems no rectal bleed no abd pain, no fever Physical Exam Vital Signs: Vital Signs: Last Vital Signs Temp 97.0 F 09/19/21 08:45 Pulse 65 09/19/21 08:45 Resp 18 09/19/21 08:45 BP 114/62 09/19/21 08:45 Pulse Ox 99 09/19/21 08:45 O2 Del Method 09/19/21 08:45 BMI result Body Mass Index 27.1 Const: Other: General: AO X 3, no acute distress Resp: CTA bilateral CVS: S1,S2,RRR GI: +BS, NT, no distention Skin: No rash Neuro: motor grossly intact Psych: appropriate affect Objective Data Active Medications Sodium Chloride (Ns) 1,000 mls @ 100 mls/hr IVCONT .Q10H [facility] Last Admin: 09/19/21 03:26 Dose: 100 mls/hr Documented By: NADINE Pharmacy Consult (Consult Rx Perform Med Rec) 1 each MISCELLANE ONCE PRN PRN Reason: Consult order Sodium Chloride (0.9 % Sodium Chloride Flush 3 Ml Syringe) 3 ml IVFLUSH QSHIFT [facility] Last Admin: 09/19/21 09:11 Dose: 3 ml Documented By: MALAIKA Labs CBC & Chem 7: 09/19/21 06:05 09/18/21 14:34 Labs: Laboratory Results - last 24 hr 09/18/21 09/18/21 09/18/21 14:34 14:34 14:34 MCV 88.9 MCH 30.2 MCHC 33.9 RDW 12.6 Plt Count 286 MPV 9.2 L Immature Gran % (Auto) 1.0 H Neut % (Auto) 74.8 H Lymph % (Auto) 15.0 L George % (Auto) 7.1 Eos % (Auto) 1.7 Baso % (Auto) 0.4 Lymph # (Auto) 1.1 L George # (Auto) 0.5 Eos # (Auto) 0.1 Baso # (Auto) 0.0 Abs Immat Gran (auto) 0.07 H Absolute Neuts (auto) 5.4 Absolute Nucleated RBC 0.000 Nucleated RBC % (auto) 0.0 PT 13.9 H INR 1.2 H Anion Gap 11 L Estim Creat Clear Calc 139.4 Estimated GFR > 60 Random Glucose 137 H D Calcium 8.4 Total Bilirubin 0.3 Direct Bilirubin 0.2 AST 16 ALT 12 Alkaline Phosphatase 47 Total Protein 5.7 L Albumin 3.7 COVID-19 ([facility]) COVID-19 Clin Com 09/18/21 09/18/21 09/19/21 14:34 18:51 06:05 MCV 88.7 89.3 MCH 29.8 29.9 MCHC 33.6 33.5 RDW 12.7 12.8 Plt Count 291 291 MPV 9.9 9.9 Immature Gran % (Auto) 0.3 Neut % (Auto) 72.0 Lymph % (Auto) 21.4 George % (Auto) 4.4 Eos % (Auto) 1.4 Baso % (Auto) 0.5 Lymph # (Auto) 1.4 George # (Auto) 0.3 Eos # (Auto) 0.1 Baso # (Auto) 0.0 Abs Immat Gran (auto) 0.02 Absolute Neuts (auto) 4.6 Absolute Nucleated RBC 0.000 0.000 Nucleated RBC % (auto) 0.0 0.0 PT INR Anion Gap Estim Creat Clear Calc Estimated GFR Random Glucose Calcium Total Bilirubin Direct Bilirubin AST ALT Alkaline Phosphatase Total Protein Albumin COVID-19 ([facility]) Negative COVID-19 Clin Com See Note Assessment and Plan (1) Rectal ulcer: Status: Acute (2) GI bleed: Status: Acute (3) Acute blood loss anemia: Status: Acute Plan 31/m with rectal ulcers, rectal bleeding and acute blood loss anemia s/p colonoscopy with biopsied of ulcers Plan: Observe for signs of bleeding, repeat H/H at noon, clear liquid diet to full liquid diet. Avoid any agent that can potentiate bleeding. GI to reassess, Bx result pending. Possible dc later today Quality Stroke Does the patient have a stroke diagnosis?: No VTE Prior VTE?: No VTE Risk Level:: Medical - low VTE Device Contraindication: Procedure Contraindicated VTE Drug Contraindication: Treatment Not Indicated
[2021-09-19 12:28] LABS: Hematocrit 28.4 % (42.0-52.0); Hemoglobin 9.6 g/dl (14.0-18.0); Mean Corpuscular HGB Conc 33.8 g/dl (31.0-36.0); Mean Corpuscular Hemoglobin 30.4 pg (27.0-33.0); Mean Corpuscular Volume 89.9 fL (80.0-98.0); Mean Platelet Volume 9.9 fL (9.4-12.4); Platelet Count 302 X10*3/uL (160-400); Red Blood Count 3.16 X10*6/uL (4.60-5.80); Red Cell Distribution Width 12.8 % (11.0-16.0); White Blood Count 4.5 X10*3/uL (4.8-10.8)
--- NOTE | 2021-09-19 13:13 | PM.DS ---
DS: Providers Provider Date of Service: 09/19/21 Date of admission: 09/18/21 15:57 Primary care physician: Unknown Physician DS: Diagnosis Discharge Diagnosis (1) Rectal ulcer: Status: Acute (2) GI bleed: Status: Resolved (3) Acute blood loss anemia: Status: Acute DS: Summary Hospital Course Hospital Course: Chief Complaint: rectal bleed/Anemia 31 year male with with no signficant PMH admitted on September 13 with rectal bleed and had EGD the following day showing mild gastritis and scheduled to have outpatient colonoscopy which was done done today and noted to have a rectal ulcers that were injecting with epi, clipping and biopsied.. During the prep yesterday he had several episodes of carlos red blood but without symptoms. No bleeding since colonoscopy. Dr Hernández is recommending overnight observation got potentilal bleed. Of note hematocrit has dropped from 37 on September 13 to 28 today, he is hemodynamically stable. Hospital course: Was observed overnight with no further bleed, H/H has been stable. Will go home on recommendation for stay on Full liquid diet, smoothies, mashed potatoes, scrambled eggs, jello and soft of liquid food for about 5 days. To take Miralax daily to avoid constipation and straining. To avoid all NSAIDS (Motrin, advil, Aleve, Naproxen, Indocin or check with Pharmacist ) Dr. Vargas will be in toubh with with patient to go over biopsy result and further care. Advised to return to ED with any bleeding issues Time Spent with Patient Time attestation: Total time spent providing and/or coordinating discharge services: Discharge coordination time: Greater than 30 minutes Quality: Safe Use of Opioids Does Pt have an Active Cancer Diagnosis on the Problem List?: No Quality: Stroke Does the patient have a stroke diagnosis?: No Physical Exam Vital Signs: Vital Signs: Last Vital Signs Temp 97.0 F 09/19/21 08:45 Pulse 65 09/19/21 08:45 Resp 18 09/19/21 08:45 BP 114/62 09/19/21 08:45 Pulse Ox 99 09/19/21 08:45 O2 Del Method 09/19/21 08:45 BMI result Body Mass Index 27.1 DS: Data Data Completed and Pending Labs on day of discharge: Laboratory Results - last 24 hr 09/18/21 09/18/21 09/18/21 14:34 14:34 14:34 WBC 7.2 RBC 3.25 L Hgb 9.8 L Hct 28.9 L MCV 88.9 MCH 30.2 MCHC 33.9 RDW 12.6 Plt Count 286 MPV 9.2 L Immature Gran % (Auto) 1.0 H Neut % (Auto) 74.8 H Lymph % (Auto) 15.0 L Morrill % (Auto) 7.1 Eos % (Auto) 1.7 Baso % (Auto) 0.4 Lymph # (Auto) 1.1 L Morrill # (Auto) 0.5 Eos # (Auto) 0.1 Baso # (Auto) 0.0 Abs Immat Gran (auto) 0.07 H Absolute Neuts (auto) 5.4 Absolute Nucleated RBC 0.000 Nucleated RBC % (auto) 0.0 PT 13.9 H INR 1.2 H Sodium 137 Potassium 4.5 Chloride 104 Carbon Dioxide 27 Anion Gap 11 L BUN 11 Creatinine 0.85 Estim Creat Clear Calc 139.4 Estimated GFR > 60 Random Glucose 137 H D Calcium 8.4 Total Bilirubin 0.3 Direct Bilirubin 0.2 AST 16 ALT 12 Alkaline Phosphatase 47 Total Protein 5.7 L Albumin 3.7 COVID-19 ([facility]) COVID-19 Clin Com 09/18/21 09/18/21 09/19/21 14:34 18:51 06:05 WBC 6.3 5.3 RBC 3.19 L 2.98 L Hgb 9.5 L 8.9 L Hct 28.3 L 26.6 L MCV 88.7 89.3 MCH 29.8 29.9 MCHC 33.6 33.5 RDW 12.7 12.8 Plt Count 291 291 MPV 9.9 9.9 Immature Gran % (Auto) 0.3 Neut % (Auto) 72.0 Lymph % (Auto) 21.4 Morrill % (Auto) 4.4 Eos % (Auto) 1.4 Baso % (Auto) 0.5 Lymph # (Auto) 1.4 Morrill # (Auto) 0.3 Eos # (Auto) 0.1 Baso # (Auto) 0.0 Abs Immat Gran (auto) 0.02 Absolute Neuts (auto) 4.6 Absolute Nucleated RBC 0.000 0.000 Nucleated RBC % (auto) 0.0 0.0 PT INR Sodium Potassium Chloride Carbon Dioxide Anion Gap BUN Creatinine Estim Creat Clear Calc Estimated GFR Random Glucose Calcium Total Bilirubin Direct Bilirubin AST ALT Alkaline Phosphatase Total Protein Albumin COVID-19 ([facility]) Negative COVID-19 My Visual Brief Com See Note 09/19/21 12:04 WBC 4.5 L RBC 3.16 L Hgb 9.6 L Hct 28.4 L MCV 89.9 MCH 30.4 MCHC 33.8 RDW 12.8 Plt Count 302 MPV 9.9 Immature Gran % (Auto) Neut % (Auto) Lymph % (Auto) Morrill % (Auto) Eos % (Auto) Baso % (Auto) Lymph # (Auto) Morrill # (Auto) Eos # (Auto) Baso # (Auto) Abs Immat Gran (auto) Absolute Neuts (auto) Absolute Nucleated RBC 0.000 Nucleated RBC % (auto) 0.0 PT INR Sodium Potassium Chloride Carbon Dioxide Anion Gap BUN Creatinine Estim Creat Clear Calc Estimated GFR Random Glucose Calcium Total Bilirubin Direct Bilirubin AST ALT Alkaline Phosphatase Total Protein Albumin COVID-19 ([facility]) COVID-19 Clin Com Discharge Plan Discharge Anticipated Discharge Date/Time: 09/19/21 13:16 Patient Disposition: Home, Self-Care Referrals: Physician,Unknown J [Physician] - 1 Week Discharge Medications: New polyethylene glycol 3350 [Miralax] 17 gram/dose powder 17 g PO DAILY 30 Days Qty: 510 0RF Continued dextroamphetamine-amphetamine [Adderall XR] 30 mg capsule,extended release 24hr 1 cap PO DAILY Discharge Orders: Discharge Order (Routine); Ordered 09/19/21 Ordered By: Alex Kwok Activity on Discharge: full liqui Stand Alone Forms: Patient Portal Discharge page Care Plan Goals: Resolution of GI bleeding and rectal ulcer Health Concerns: rectal bleeding and rectal ulcer Plan of Treatment: Stay on Full liquid diet, smoothies, mashed potatoes, scrambled eggs, jello and soft of liquid food for about 5 days. Take Miralax daily to avoid constipation and straining. You should avoid all NSAIDS (Motrin, advil, Aleve, Naproxen, Indocin or check with Pharmacist . Dr. Vargas will be in toubh with with you to go over result and further care plan. Please report to the emergency or call 911 if you continue to have bleeding Assessment: As above Discharge Date/Time: 09/19/21 14:07
--- NOTE | 2021-09-19 13:25 | MHC.CM.PN ---
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
== END 2021-09-19 14:07 | disposition home or self-care (01) ==
LOC: HO.ED 17:04 → HO.EDOVER 17:11 → HO.S3 17:34
PROVIDERS: Internal Medicine; Admitting Provider Internal Medicine; Emergency Provider Emergency Medicine; PCP Internal Medicine; Visit Provider Internal Medicine
DX: K92.2 Gastrointestinal hemorrhage, unspecified (principal); D62 Acute posthemorrhagic anemia; K62.6 Ulcer of anus and rectum; R00.1 Bradycardia, unspecified; Z98.890 Other specified postprocedural states; Z20.822 Contact with and (suspected) exposure to COVID-19
CPT/HCPCS: 36415; 74176; 80048; 80076; 85025; 85027; 85610; 87635; 93005; 96361; 96374; 99218; 99285; J2270

== ENCOUNTER 2021-10-02 14:55 | Outpatient (REF) | payer BC, SELFPAY ==
[2021-10-02 15:26] LABS: MANUAL DIFF FLAG NO
[2021-10-02 15:36] LABS: Basophils Absolute Auto 0.1 X10*3/uL (0.0-0.2); Basophils Percent Auto 1.1 % (0-2); Eosinophils Absolute Auto 0.1 X10*3/uL (0.0-0.4); Hematocrit 33.9 % (42.0-52.0); Hemoglobin 11.5 g/dl (14.0-18.0); Imm Gran Abs Auto 0.01 X10*3/uL (0.00-0.03); Imm Gran Pct Auto 0.2 % (0.0-0.4); Lymphocytes Absolute Auto 1.5 X10*3/uL (1.2-4.9); Lymphocytes Percent Auto 32.7 % (20-40); Mean Corpuscular HGB Conc 33.9 g/dl (31.0-36.0); Mean Corpuscular Hemoglobin 30.8 pg (27.0-33.0); Mean Corpuscular Volume 90.9 fL (80.0-98.0); Mean Platelet Volume 9.1 fL (9.4-12.4); Monocytes Absolute Auto 0.5 X10*3/uL (0.1-1.2); Monocytes Percent Auto 11.4 % (2-11); Neutrophils Absolute Auto 2.4 x10*3/uL (2.0-8.3); Neutrophils Percent Auto 51.6 % (45-73); Platelet Count 415 X10*3/uL (160-400); Red Blood Count 3.73 X10*6/uL (4.60-5.80); Red Cell Distribution Width 14.5 % (11.0-16.0); White Blood Count 4.7 X10*3/uL (4.8-10.8)
[2021-10-02 16:00] LABS: Iron 65 mcg/dL (45-160); Percent Iron Saturation 21 % (15-50); Total Iron Binding Capacity 310 mcg/dL (228-428); Unsaturated Iron Binding 245 ug/dL
[2021-10-02 16:21] LABS: Ferritin 76 ng/mL (20-250)
== END 2021-10-02 14:56 | disposition home or self-care (01) ==
LOC: HO.LAB 14:55
PROVIDERS: PCP Internal Medicine; Visit Provider Internal Medicine
DX: K92.2 Gastrointestinal hemorrhage, unspecified (principal)
CPT/HCPCS: 36415; 82728; 83540; 85025

== ENCOUNTER 2021-12-13 06:33 | Day surgery (SDC) | payer BC, SELFPAY ==
[2021-12-10 14:02] VITALS: BMI 25.0
--- NOTE | 2021-12-12 13:34 | HO.ANESPROP2 ---
HPI - Anesthesia Eval Consult details Narrative: 31yo M for Colonoscopy [facility] Active Problems Active Problems: All Active Problems (Updated 12/10/21 @ 14:02 by Holly Leggett RN) Acute blood loss anemia (Acute) Rectal ulcer (Acute) Past Medical History Medical History (Updated 12/21/21 @ 00:03 by Jessica Crawley) Acute blood loss anemia Bradycardia GI bleed History of COVID-19 Rectal ulcer Family History Family history of problems with anesthesia: No Surgical History Surgical History H/O colonoscopy History of surgery Hx of esophagogastroduodenoscopy History of Problems with Anesthesia: No Social History Social History Household Members: Spouse Housing: House Do you presently have visiting nurse or other home services: No Unable to assess alcohol history related to: Unknown Patient Tobacco Use Status: Never used Tobacco Use of substances other than those prescribed or required for medical reasons: No Are you DNR?: No Advance Directives: No Advance Directives Information Provided: Yes service: No Current occupational status: employed Meds Allergies Allergy/AdvReac Type Severity Reaction Status Date / Time No Known Allergies Allergy Verified 09/18/21 14:16 Home Medications Medication Instructions Recorded Confirmed Last Taken Type dextroamphetamine-amphetamine ER 1 cap PO DAILY 09/13/21 12/13/21 12/12/21 History 30 mg 24hr capsule,extend release (Adderall XR) omeprazole 20 mg capsule,delayed 1 cap PO DAILY 12/10/21 12/10/21 11/30/21 History release Exam Exam Date and Time: December 12, 2021 1334 Height,Weight and Vital Signs: Height 6 ft Weight 83.915 kg Pertinent Lab Results Pertinent Lab Results: Laboratory Tests 09/18/21 10/02/21 14:34 15:24 WBC 4.7 L Hgb 11.5 L Hct 33.9 L Plt Count 415 H D Sodium 137 Potassium 4.5 Chloride 104 Carbon Dioxide 27 BUN 11 Creatinine 0.85 Narrative Narrative: EKG 09/2021 Vent. Rate : 060 BPM ? ? Atrial Rate : 060 BPM ?? P-R Int : 166 ms? QRS Dur : 104 ms ? ? QT Int : 428 ms ? ? ? P-R-T Axes : 067 085 053 degrees ?? QTc Int : 428 ms ? Normal sinus rhythm Normal ECG No previous ECGs available Assessment and Plan Assessment Anesthesia Assessment: Chart Reviewed Final Anesthetic Review Family History of Problems with Anesthesia: No History of Problems with Anesthesia: No
[2021-12-13 06:40] VITALS: BP 118/80; PULSE 67; RESP 18; TEMP 36.1; O2SAT 97
[2021-12-13 06:47] VITALS: BMI 25.7
[2021-12-13] MEDS: Lactated Ringers 1,000 ML 100 ML IVCONT (07:06)
--- NOTE | 2021-12-13 07:20 | P.CONAN_ITS ---
[facility] Active Problems Active Problems: All Active Problems (Updated 12/10/21 @ 14:02 by Holly Leggett RN) Acute blood loss anemia (Acute) Rectal ulcer (Acute) Past Medical History Medical History Bradycardia GI bleed History of COVID-19 Rectal ulcer Family History Family history of problems with anesthesia: No Surgical History Surgical History H/O colonoscopy History of surgery Hx of esophagogastroduodenoscopy History of Problems with Anesthesia: No Social History Social History Household Members: Spouse Housing: House Do you presently have visiting nurse or other home services: No Unable to assess alcohol history related to: Unknown Patient Tobacco Use Status: Never used Tobacco Use of substances other than those prescribed or required for medical reasons: No Are you DNR?: No Advance Directives: No Advance Directives Information Provided: Yes service: No Current occupational status: employed Meds Allergies Allergy/AdvReac Type Severity Reaction Status Date / Time No Known Allergies Allergy Verified 09/18/21 14:16 Active Medications: Current Medications Lactated Ringer's (Lr) 1,000 mls @ 100 mls/hr IVCONT .Q10H [facility] Last Admin: 12/13/21 07:06 Dose: 100 mls/hr Home Medications Medication Instructions Recorded Confirmed Last Taken Type dextroamphetamine-amphetamine ER 1 cap PO DAILY 09/13/21 12/13/21 12/12/21 History 30 mg 24hr capsule,extend release (Adderall XR) omeprazole 20 mg capsule,delayed 1 cap PO DAILY 12/10/21 12/10/21 11/30/21 History release Exam Exam Date and Time: December 13, 2021 0720 Height,Weight and Vital Signs: Height 6 ft Weight 86.183 kg Last Vital Signs Temp 97.0 F 12/13/21 06:40 Pulse 67 12/13/21 06:40 Resp 18 12/13/21 06:40 BP 118/80 12/13/21 06:40 Pulse Ox 97 12/13/21 06:40 O2 Del Method 12/13/21 06:40 Airway Mallampati Class: II TM Dist: >3cm Neck ROM: Full Assessment and Plan Assessment Anesthesia Assessment: Anesthesia Plan Discussed and Chart Reviewed Final Anesthetic Review Family History of Problems with Anesthesia: No History of Problems with Anesthesia: No NPO: Yes ASA Class: II Final Preanesthetic Review: No Changes in Pt Med Stat, Meds/Allgs Chart Reviewed, Consent Obtained/Reviewed and Anes Risks/Benef Reviewed Patient Risk: Low Procedure Risk: Low Anesthetic Plan Anesthetic Plan: MAC: Disposition: Standard PACU
[2021-12-13 08:43] VITALS: BP 108/62; PULSE 70; RESP 16; TEMP 36.3; O2SAT 100
--- NOTE | 2021-12-13 08:49 | P.BOP_ITS ---
Brief Operative Note Date of Service: 12/13/21 Pre-op diagnosis: Rectal ulcer Post-op diagnosis: other (Same but much improved) Procedure: Colonoscopy to the cecum and TI with biopsies Surgeon: Cameron Vargas Anesthesia: MAC Was an Counseling Services Manager used for this Procedure?: No Estimated blood loss (mL): 2.0 Pathology: other (A. Rectal ulcer) Condition: stable Disposition: PACU
[2021-12-13 08:58] VITALS: BP 119/80; PULSE 81; RESP 16; TEMP 36.3; O2SAT 99
--- NOTE | 2021-12-13 11:04 | OP_ITS ---
SURGEON: Cameron Vargas MD INDICATIONS: The patient presents for followup of rectal ulcer. Full consent has been obtained from him for this, including risks of bleeding and perforation. PREOPERATIVE DIAGNOSIS: History of rectal ulcer in relation to chronic constipation. POSTOPERATIVE DIAGNOSIS: PROCEDURE PERFORMED: Colonoscopy to cecum and terminal ileum with biopsy. ESTIMATED BLOOD LOSS: COMPLICATIONS: ANESTHESIA: Monitored anesthesia care. ASSISTANTS: SPECIMENS: POSTOPERATIVE DIAGNOSES: History of rectal ulcer in relation to chronic constipation, markedly improved rectal ulcer. DESCRIPTION OF PROCEDURE: The patient was placed in left lateral decubitus position. The digital rectal exam revealed no abnormalities. There was no perianal disease. The Olympus video pediatric colonoscope was entered into the rectum and advanced to the cecum with the assistance of abdominal wall pressure. Once in the cecum, I did identify a normal-appearing cecal pouch with appendiceal orifice and a normal-appearing ileocecal valve. The terminal ileum was cannulated and appeared normal. The scope withdrawn back in the colon. The entire cecum and ileocecal valve appeared normal. The scope was slowly withdrawn assessing all mucosal surfaces carefully. Preparation was excellent. I did not visualize any sign of colitis, polyps, nor angiodysplasia. In the rectum, in both the forward viewing and retroflexed position, there was a visible ulcer in what appeared to be the posterior wall. However, this was markedly improved from his previous exam. There was some surrounding edema, but there is no evidence of any mass nor suspicion for malignancy. There was no bleeding. I did obtain biopsies from some of the margins of the ulcer. There was no other rectal disease noted. The scope was straightened. Of note, the anal canal appeared normal. It had previously appeared to have some ulceration on the last colonoscopy. The scope was withdrawn from the patient. He tolerated the procedure well and was returned to the recovery area in stable condition. IMPRESSION: Resolving rectal ulcer, presumably due to previous chronic constipation. PLAN: The patient reports that his bowel movements have been much more regular on a daily regimen of MiraLAX. I have advised him to continue this long-term. I have also recommended that he buy some [id number]-[id number]-[id number] suppositories with hydrocortisone and use those nightly for 2 weeks just to try to treat any of the residual inflammation in the rectum. He will see me in the office for a followup. If things are stable, I would recommend a repeat colonoscopy at age 41 for further screening given the family history of a grandfather and a 2nd cousin with colon cancer. This has been discussed with his . MD BEN Silverman/ZANE / [id number] MTDD
== END 2021-12-13 11:00 | disposition home or self-care (01) ==
PROVIDERS: PCP Internal Medicine; Visit Provider Internal Medicine
PROC: 0DJD8ZZ Inspection of Lower Intestinal Tract, Via Natural or Artificial Opening Endoscopic (ICD-10-PCS; CPT 45378; principal; 2021-12-13 07:30)
DX: K62.6 Ulcer of anus and rectum (principal); K59.09 Other constipation; K44.9 Diaphragmatic hernia without obstruction or gangrene; F90.9 Attention-deficit hyperactivity disorder, unspecified type; Z79.899 Other long term (current) drug therapy; Z86.16 Personal history of COVID-19; Z98.890 Other specified postprocedural states
CPT/HCPCS: 45380; 88305

== ENCOUNTER 2022-04-25 12:50 | Outpatient (REF) | payer BC, SELFPAY ==
[2022-04-25 14:28] LABS: Adenovirus PCR Not Detected (Not Detect.); Bordetella parapertussis PCR Not Detected (Not Detect.); Bordetella pertussis PCR Not Detected (Not Detect.); Chlamydia pneumoniae PCR Not Detected (Not Detect.); Coronavirus 229E PCR Not Detected (Not Detect.); Coronavirus HKU1 PCR Not Detected (Not Detect.); Coronavirus NL63 PCR Not Detected (Not Detect.); Coronavirus OC43 PCR Not Detected (Not Detect.); Human metapneumovirus PCR Not Detected (Not Detect.); Influenza A PCR Not Detected (Not Detect.); Influenza B PCR Not Detected (Not Detect.); Mycoplasma pneumoniae PCR Not Detected (Not Detect.); Parainfluenza 1 PCR Not Detected (Not Detect.); Parainfluenza 2 PCR Not Detected (Not Detect.); Parainfluenza 3 PCR Not Detected (Not Detect.); Parainfluenza 4 PCR Not Detected (Not Detect.); RSV PCR Not Detected (Not Detect.); Rhino/Enterovirus PCR Not Detected (Not Detect.); SARS-CoV-2 PCR Not Detected (Not Detect.)
== END 2022-04-25 12:51 | disposition home or self-care (01) ==
LOC: HO.LAB 12:50
PROVIDERS: Visit Provider Physician Assistant
DX: R68.83 Chills (without fever) (principal); M79.10 Myalgia, unspecified site
CPT/HCPCS: 87633